=== PATIENT | female | born 1940 | race Caucasian/White ===

== ENCOUNTER 2016-09-11 11:14 | Inpatient (IN) | payer MEDICARE, OTHER ==
--- NOTE | ~2016-09-11 | BMI ---
[facility] Nutrition Therapy DATE: 09/13/16 Patient: ANTHONY HOLLIS Physician: BIANCA Address: [address] Room/Bed: [address] [place] [address], Zip: [place] [address] Admit Date: 09/11/16 Date of : 42 Height: 5 2 Weight: 222 101 HIGH BMI NOTE: ANTHROPOMETRICS: HT: 62" WT: 102 KG BMI: 41.1 INTERVENTION: 1. RENAL/ LOW K+ DIET RECOMMENDATIONS: 1. ADD HEART HEALTHY DIET RESTRICTION IN ORDER TO PROMOTE GRADUAL WEIGHT LOSS. Respectfully, DENISSE ROE RD, LD [employer] and Nutrition[employer] Services [facility] cc: client file
--- NOTE | ~2016-09-11 | CR156 ---
[facility] A Service of [facility] & [facility] RADIOLOGY TEXT RESULTS PATIENT: ANTHONY HOLLIS LOCATION: [facility] - : 42 UNIT #: [id number] AGE: [address]: Latonia Feliz MD SEX: F ORDER DR: [id number] [facility]. [place], [place] [address] [id number] I MR#: [id number] Acc #: [id number] NAME: ANTHONY HOLLIS. : 1940 SEX: F STUDY DATE/TIME: 09/14/2016 13:21 UNIT: [address] ROOM: [facility] STUDY DESCRIPTION: CR Humerus Min 2 View Lt Attending Physician: Latonia Feliz M.D. Ordering Physician: Latonia Feliz M.D. Primary Care Physician: Mulugeta Paredes Jr., M.D. MEDICAL IMAGING REPORT This report is preliminary unless electronic signature is present EXAM Left humerus, 2 views COMPARISON Left shoulder radiographs dated July 07, 2016. INDICATION 76-year-old female with left upper arm pain after falling today. FINDINGS Evaluation of the elbow is limited by nonstandard positioning. There is no evidence of acute fracture of the humerus. There is anatomic alignment at the shoulder. There is a chronic fracture which appears to be somewhat comminuted with an intraarticular extension and a transverse component at the radial neck extending through the radial head. It appears there is a pseudoarthrosis at the fracture line with nonunion. Given appearance on this current exam subluxation at the elbow cannot be excluded. IMPRESSION 1. No evidence of acute fracture of the humerus. 2. Alignment at the elbow is difficult to evaluate given nonstandard positioning. Subluxation and/or dislocation cannot be excluded given the current appearance. There is also a chronic comminuted fracture of the radial head extending into the neck with a transverse component and longitudinal component extending into the articular surface. There is pseudoarthrosis formation in this location. Consider orthopedic consultation. Dictated by... Ilan Duran M.D. THIS IS AN ELECTRONICALLY VERIFIED REPORT Ilan Duran M.D. at 09/17/2016 8:50 AM [facility] A Service of [facility] RADIOLOGY TEXT RESULTS PATIENT: ANTHONY HOLLIS LOCATION: [facility] 338-01 : 42 UNIT #: [id number] AGE: [address]: Latonia Feliz MD SEX: F ORDER DR: JERSEY/saúl TD: 09/15/2016 02:46 JOB #: [id number] MEDICAL IMAGING REPORT Page 1 of 1 COPY
--- NOTE | ~2016-09-11 | EKG ---
PATIENT: ANTHONY HOLLIS UNIT #: [id number] Ventricular Rate: 79 BPM Atrial Rate: 79 BPM P-R Interval: 168 ms QRS Duration: 132 ms Q-T Interval: 404 ms QTC Calculation(Bezet): 463 ms P [place]: 58 degrees Calculated R [place]: 7 degrees Calculated T [place]: 104 degrees Diagnosis Line: Normal sinus rhythm Diagnosis Line: Left bundle branch block with repolarization Diagnosis Line: abnormality Diagnosis Line: Abnormal ECG Diagnosis Line: When compared with ECG of 07-JUL-2016 03:45, Diagnosis Line: No significant change was found Diagnosis Line: Confirmed by KENAN LOO MD ([id number]) on 09/12/2016 Diagnosis Line: 9:20:03 AM INTERPRETING MD: CINDA URRUTIA
--- NOTE | ~2016-09-11 | DS ---
Unit #: [id number] #: [id number] Patient: ANTHONY HOLLIS [id number] [address] [address] [id number] I MR#: [id number] NAME: ANTHONY HOLLIS. ROOM: 338 Age: 76 Sex: F Admission Date: 09/11/2016 : 1940 Discharge Date: 09/16/2016 Attending Physician: Latonia Feliz M.D. Primary Care Physician: Mulugeta Paredes Jr., M.D. DISCHARGE SUMMARY DISCHARGE DIAGNOSES 1. Acute kidney injury with chronic kidney disease, stage 3. 2. Hyperkalemia secondary to acute kidney injury. 3. ESBL urinary tract infection. 4. Hypertension. 5. Diabetes mellitus type 2, uncontrolled. 6. Coronary artery disease. 7. Morbid obesity. 8. Chronic immobility. 9. Gastroesophageal reflux disease. 10. Generalized anxiety and depression. CONSULTANTS Dr. Pinto. PROCEDURES PERFORMED None. DIAGNOSTIC DATA LABORATORY: Sugar 279, sodium 140, potassium 4.8, creatinine 1.4, carbon dioxide 21. Urine cultures are growing ESBL e-coli infection. BMI 41. ALLERGIES Aspirin. DISCHARGE MEDICATIONS 1. Advair 250/50 Diskus inhalation b.i.d. 2. Sodium bicarbonate 650 mg p.o. b.i.d. 3. Effexor 75 mg daily. 4. Seroquel 50 mg at bedtime. 5. Norvasc 5 mg daily. 6. Propranolol 10 mg p.o. b.i.d. 7. Zocor 10 mg daily. 8. Humulin 70/30 22 units subcutaneous b.i.d. 9. NovoLog low-dose sliding scale. 10. Omeprazole 20 mg daily. 11. Vitamin B12 1000 mg p.o. daily. 12. Meropenem 500 mg IV q.8 h. Stop take 09/19/2016. HOSPITAL COURSE The patient is a 76-year-old admitted because of abnormal labs. 1. Acute kidney injury. The patient has chronic kidney disease stage 3. The patient's lisinopril has been discontinued. The patient received Unit #: [id number] #: [id number] Patient: ANTHONY HOLLIS IV fluids. Creatinine stable. She did receive bicarbonate also. 2. ESBL urinary tract infection. This is sensitive to most of antibiotics. The patient is on IV meropenem. She will complete a course of seven days. 3. Hyperkalemia secondary to acute kidney injury. The patient received insulin, IV fluids, calcium and Kayexalate. Currently potassium is stable. 4. Hypertension. Well controlled. 5. Diabetes mellitus type 2, uncontrolled. I increased her insulin. Continue with her 70/30 at home. Continue with constant carb diet. 6. Because of IV antibiotics and no help at home, the patient is going for rehab. The patient will have midline placed as she is going for rehab today. 7. Left shoulder pain. Orthopedics has been consulted. X-ray shows possible dislocation. Her pain is chronic, though, waiting on orthopedic input before discharge. Discharge time taken was 40 minutes. Dictated by... Tan King/kailash TD: 09/16/2016 15:09 JOB #: [id number] DISCHARGE SUMMARY Page 1 of 1 X Latonia Feliz MD X DISCHARGE SUMMARY
--- NOTE | ~2016-09-11 | CO ---
Unit #: [id number] #: [id number] Patient: ANTHONY HOLLIS [id number] [address] [address] [id number] I MR#: [id number] NAME: ANTHONY HOLLIS. ROOM: 338 Age: 76 Sex: F Admission Date: 09/11/2016 : 1940 Attending Physician: Latonia Feliz M.D. Primary Care Physician: Mulugeta Paredes Jr., M.D. Consultation Date: 09/11/2016 CONSULTATION REPORT REASON FOR CONSULT Acute renal failure and hyperkalemia. HISTORY OF PRESENT ILLNESS The patient is a 76-year-old, white female with history of CKD stage 3, baseline creatinine around 1.2 with history of diabetes, hypertension. Currently, the patient is seen and examined in the emergency room. She is confused and awake, but without complaints. PAST MEDICAL HISTORY Significant for diabetes, hypertension, CKD stage 3, hyperlipidemia. HOME MEDICATIONS Include Advair, Humulin, venlafaxine, vitamin, simvastatin, antacid, Aldactone, Norvasc, propranolol, omeprazole, Seroquel, Omnicef, Zestril, and Glucophage. SOCIAL HISTORY No tobacco. No alcohol. FAMILY HISTORY Noncontributory. REVIEW OF SYSTEMS 12-point review of systems cannot be completed secondary to the patient's confusion although she was without complaint. PHYSICAL EXAMINATION VITAL SIGNS: Blood pressure is 122/84, heart rate 84, respirations 18, temperature is 97.6. GENERAL: She is a well-nourished white female. HEENT: Shows no JVD. No LAD. CARDIOVASCULAR: Regular rate and rhythm. No murmurs, rubs, gallops. LUNGS: Clear to auscultation bilaterally. ABDOMEN: Soft, nontender, nondistended. EXTREMITIES: No clubbing, cyanosis, edema. NEUROLOGIC: She is awake, but confused and grossly intact. DIAGNOSTIC STUDIES LABORATORY RESULTS: Show sodium 138, potassium 5.6, chloride 107, bicarb 23, BUN 39, creatinine 1.5, calcium 8.6. White count 9.7, hemoglobin 11.2, platelets are 228. UA positive for wbc's and nitrites. ASSESSMENT Unit #: [id number] #: [id number] Patient: ANTHONY HOLLIS 1. Acute on chronic kidney disease. Creatinine is elevated to 1.5, which is slightly above her baseline. She does appear volume depleted on exam as well as with urinary tract infection. Agree with current antibiotics and IV fluids. I agree with holding lisinopril. We will continue to monitor. 2. Hyperkalemia most likely secondary to lisinopril and Aldactone. Agree with discontinuing these. She is status post Kayexalate as well as calcium gluconate. We will repeat potassium level tonight as well as in a.m. 3. Urinary tract infection, awaiting culture. Agree with antibiotics. 4. Hypertension. Blood pressure is currently at goal. I would like to thank Dr. Barahona for consulting us on this patient. We will continue to monitor closely. Dictated by... Tan Aleman/maximilian TD: 09/13/2016 01:36 JOB #: [id number] CONSULTATION REPORT Page 1 of 1 X Rosio Pinto MD X CONSULTATION REPORT
--- NOTE | ~2016-09-11 | CR229 ---
[facility] A Service of [facility] & [facility] RADIOLOGY TEXT RESULTS PATIENT: ANTHONY HOLLIS LOCATION: [facility] - : 42 UNIT #: [id number] AGE: [address]: Latonia Feliz MD SEX: F ORDER DR: [id number] [facility]. [place], [place] [address] [id number] I MR#: [id number] Acc #: [id number] NAME: ANTHONY HOLLIS. : 1940 SEX: F STUDY DATE/TIME: 09/14/2016 13:20 UNIT: [address] ROOM: [facility] STUDY DESCRIPTION: CR Shoulder Min 2 View Lt Attending Physician: Latonia Feliz M.D. Ordering Physician: Latonia Feliz M.D. Primary Care Physician: Mulugeta Paredes Jr., M.D. MEDICAL IMAGING REPORT This report is preliminary unless electronic signature is present EXAM Left shoulder, 3 views COMPARISON July 07, 2016. INDICATION 76-year-old female with left shoulder pain after falling today. FINDINGS There is stable joint space narrowing and moderate osteophyte formation at the acromioclavicular joint. Please note that the scapula is not well evaluated on the scapular Y view due to soft tissue attenuation. No acute fracture is definitively seen on the current exam. The left shoulder is anatomically aligned. IMPRESSION 1. Limited evaluation of the scapular body due to soft tissue attenuation and underpenetration. Correlation for point tenderness in this location is recommended. 2. Anatomic alignment of the left shoulder. No evidence of acute fracture on the current exam. 3. Moderate osteoarthritis of the acromioclavicular joint. Dictated by... Ilan Duran M.D. THIS IS AN ELECTRONICALLY VERIFIED REPORT Ilan Duran M.D. at 09/17/2016 8:47 AM JERSEY/saúl TD: 09/15/2016 02:25 [facility] A Service of [facility] RADIOLOGY TEXT RESULTS PATIENT: ANTHONY HOLLIS LOCATION: [facility] 338-01 : 42 UNIT #: [id number] AGE: [address]: Latonia Feliz MD SEX: F ORDER DR: JOB #: [id number] MEDICAL IMAGING REPORT Page 1 of 1 COPY
--- NOTE | ~2016-09-11 | HP ---
Unit #: [id number] #: [id number] Patient: ANTHONY HOLLIS [id number] [address] [address] [id number] E MR#: [id number] NAME: ANTHONY HOLLIS. ROOM: Age: 76 Sex: F Admission Date: 09/11/2016 : 1940 Attending Physician: Denis Gonzalez M.D. Primary Care Physician: Mulugeta Paredes Jr., M.D. HISTORY AND PHYSICAL CHIEF COMPLAINT Abnormal labs. HISTORY OF PRESENT ILLNESS The patient is 76-year-old female with history of multiple medical problems who presented to the emergency room with abnormal labs. The patient stated the patient had blood work this morning and was sent to the emergency room for high potassium of 5.6. The patient denies any specific complaints, denies any chest pain, palpitations, nausea, vomiting. The patient had an EKG that shows normal sinus rhythm with left bundle branch block. The patient received the fluids with calcium gluconate and Kayexalate in the emergency room and is being admitted for the above reasons. The patient is on Aldactone for the blood pressure and has been managed by the renal doctor. PAST MEDICAL HISTORY 1. History of chronic kidney disease. Baseline creatinine is 1.5. 2. History of hypertension. 3. Diabetes with poor compliance. 4. Coronary artery disease. 5. Hyperlipidemia. 6. Morbid obesity. 7. Chronic immobility syndrome. 8. GERD. 9. Generalized anxiety depression. PAST SURGICAL HISTORY History of hysterectomy. HOME MEDICATIONS 1. Advair. 2. Humulin. 3. Venlafaxine. 4. Vitamins. 5. Simvastatin. 6. Antacid. 7. Aldactone. 8. Norvasc. 9. Propranolol. 10. Omeprazole. 11. Seroquel. 12. Omnicef. 13. Zestril. 14. Glucophage. Unit #: [id number] #: [id number] Patient: ANTHONY HOLLIS ALLERGIES Aspirin. SOCIAL HISTORY Lives at home with her daughter. Denies alcohol, tobacco or any illicit drug abuse. FAMILY HISTORY Positive for hypertension and diabetes. REVIEW OF SYSTEMS A 14-point review of systems performed and only pertinent positive findings as described above, remaining are negative. PHYSICAL EXAMINATION VITAL SIGNS: Temperature 97.6, pulse 86, respiratory rate 17, blood pressure 128/54, saturating 93% at room air. GENERAL: Patient is lying on the bed not in acute distress. HEENT: Atraumatic, normocephalic. Pupils equal, round, and reactive to light and accommodation. Extraocular movements are intact. NECK: Supple. No JVD. LUNGS: Clear to auscultation bilaterally. No rhonchi, no wheezing. HEART: Regular rate and rhythm. ABDOMEN: Soft, positive bowel sounds. EXTREMITIES: No cyanosis, no clubbing. No pedal edema. NEUROLOGIC: Alert, awake, oriented. No gross focal motor deficit. DIAGNOSTIC STUDIES LABORATORY: Glucose 186, BUN 39, creatinine 1.5, sodium 138, potassium 5.6, chloride 107, bicarb 23, calcium 8.6, total protein 7.3, total bilirubin 0.3, AST 22, ALT 17, alkaline phosphatase 85. WBC 9.7, hemoglobin 11.2, hematocrit 34.4, platelets 228, neutrophils 75.3. UA shows 2+ leukocyte esterase, nitrite positive, 10-25 wbc's, 4+ urine bacteria. CARDIOVASCULAR: EKG shows normal sinus rhythm. Left bundle branch block, chronic. ASSESSMENT AND PLAN 1. Hyperkalemia. 2. Acute kidney injury/chronic kidney disease. 3. Urinary tract infection. 4. Hypertension. PLAN 1. Admit patient as inpatient with telemetry. 2. Patient will be started on IV antibiotics as not received in the ER with Rocephin. 3. Patient has received cocktail for potassium lowering with fluids, calcium gluconate and Kayexalate. 4. Hold Aldactone. 5. Repeat potassium level again at 8 p.m. 6. Continue with renal low-potassium diet. 7. Repeat CBC and BMP again in the morning. 8. Further recommendations will follow. Unit #: [id number] #: [id number] Patient: ANTHONY HOLLIS Dictated by Tan Cai TD: 09/11/2016 15:25 JOB #: [id number] HISTORY AND PHYSICAL Page 1 of 1 X X HISTORY AND PHYSICAL
[~2016-09-11 11:14] MED LIST: ACTOS15 MG PO; ADVAIR 250-501 EAC1 INH; ALBUTEROL17 GM INH; ALDACTONE25 MG PO; ANTACID650 MG PO; B-121000 MC1 PO; BP; DICLOFENAC PO; DIFLUCAN100 MG PO; FENOFIBRATE160 MG PO; GEODON20 MG PO; GLUCOPHAGE XR500 MG PO; GLUCOTROL PO; HUMALOG100 U/ML SUBQ; HUMULIN 70100 UNITS/ SUBQ; HUMULIN N VIAL; HYCODAN60 ML 5MG/ PO; INSULIN; KCL PO; KEFLEX500 M2 PO; LASIX PO; LEVEMIR SUBQ; LISINOPRIL PO; LISINOPRIL10 MG PO; LOTRISONE CREAM45 GM TOP; MACROBID100 MG PO; MEDROL4 MG/DOSE- PO; METFORMIN; METFORMIN HCL500 M1 PO; METFORMIN HCL500 M2 PO; NORVASC PO; NOVOLIN 70/30 V10 M1 SQ; OMEPRAZOLE20 M2 PO; OMNICEF300 MG PO; OXAZEPAM10 MG DOB; PHENERGAN PR; PHENERGAN25 MG PO; PROPRANOLOL HCL10 MG PO; QUETIAPINE FUMA50 MG PO; SIMVASTATIN10 MG PO; SODIUM BICARBO650 MG PO; ULTRAM PO; VENLAFAXINE HCL75 M2 PO; VICODIN 5/1 TAB 5/50 PO; VITAMIN B-121000 MCG PO; ZESTRIL10 M1 PO; ZITHROMAX PO; ZOCOR10 MG PO
[2016-09-11 11:15] LABS: BASOPHIL% 0.5 % (0-2.5); EOSINOPHIL# 0.1 X10e3 (0-0.7); EOSINOPHIL% 1.3 % (0.0-7.0); HEMATOCRIT 34.4 % (35.0-45.0); HEMOGLOBIN 11.2 gm/dL (12.0-16.0); LYMPHOCYTE# 1.7 X10e3 (1.0-3.5); LYMPHOCYTE% 17.9 % (17.0-45.0); MEAN CELL VOLUME 99.9 FL (83-96); MEAN CORPUSCULAR HEMOGLOBIN 32.6 PG (28-34); MEAN CORPUSCULAR HGB CONC 32.6 g/dL (30-36); MEAN PLATELET VOLUME 8.1 FL (6.5-11.5); MONOCYTE# 0.5 X10e3 (0-1.0); NEUTROPHIL# 7.3 X10e3 (1.5-7.1); NEUTROPHIL% 75.3 % (40-75); PLATELET COUNT 228 X10e3 (140-420); RED BLOOD COUNT 3.44 X10e (3.90-5.30); RED CELL DISTRIBUTION WIDTH 13.5 % (11.0-15.5); WHITE BLOOD COUNT 9.7 X10e3 (4.0-10.5)
[2016-09-11 11:20] LABS: DIFF IND NO
[2016-09-11 11:58] LABS: ALBUMIN SERUM 3.7 g/dL (3.5-5.0); BILIRUBIN, DIRECT 0.1 mg/dL (0.0-0.2); BILIRUBIN,INDIRECT 0.2 mg/dL (0.0-0.9); BILIRUBIN,TOTAL 0.3 mg/dL (0.2-2.0); CALCIUM SERUM 8.6 mg/dL (8.4-10.2); CREATININE SERUM 1.5 mg/dL (0.6-1.4); GLOM FILT RATE Estimated 36.1 mL/min (>60); PROTEIN TOTAL SERUM 7.3 g/dL (6.0-8.3)
[2016-09-11 12:00] LABS: POTASSIUM 5.6 mmol/L (3.5-5.1)
[2016-09-11 13:17] LABS: URINE SOURCE CLEAN CATCH
[2016-09-11 13:24] LABS: URINE APPEARANCE CLEAR; URINE BILIRUBIN NEG (NEG); URINE BLOOD NEG (NEG); URINE COLOR YELLOW; URINE GLUCOSE NEG (NEG); URINE KETONE NEG (NEG); URINE LEUKOCYTE ESTERASE 2+ (NEG); URINE NITRATE POS (NEG); URINE PROTEIN NEG (NEG); URINE SPECIFIC GRAVITY 1.015 (1.003-1.035); URINE UROBILINOGEN 0.2 MG/DL (NEG)
[2016-09-11 13:46] LABS: CULTURE INDICATED? YES; URBCS1 AUWI 0-2 /[HPF] (0-2); URINE BACTERIA AUWI 4+ (NEGATIVE); URINE SQUAMOUS EPITHELIAL CELL OCC /[HPF]
[2016-09-12 08:04] LABS: HEMATOCRIT 32.7 % (35.0-45.0); HEMOGLOBIN 10.9 gm/dL (12.0-16.0); MEAN CELL VOLUME 99.2 FL (83-96); MEAN CORPUSCULAR HEMOGLOBIN 33.1 PG (28-34); MEAN CORPUSCULAR HGB CONC 33.3 g/dL (30-36); RED BLOOD COUNT 3.3 X10e (3.90-5.30); RED CELL DISTRIBUTION WIDTH 13.2 % (11.0-15.5); WHITE BLOOD COUNT 8.6 X10e3 (4.0-10.5)
[2016-09-12 08:28] LABS: BUN/CREATININE RATIO 25.71; CALCIUM SERUM 8.9 mg/dL (8.4-10.2); CREATININE SERUM 1.4 mg/dL (0.6-1.4); GLOM FILT RATE Estimated 39.1 mL/min (>60); POTASSIUM 5.1 mmol/L (3.5-5.1)
[2016-09-13 08:47] LABS: BUN/CREATININE RATIO 27.14; CALCIUM SERUM 8.7 mg/dL (8.4-10.2); CREATININE SERUM 1.4 mg/dL (0.6-1.4); GLOM FILT RATE Estimated 36.9 mL/min (>60)
[2016-09-14 06:10] LABS: HEMATOCRIT 36.2 % (35.0-45.0); HEMOGLOBIN 11.9 gm/dL (12.0-16.0); MEAN CELL VOLUME 99.5 FL (83-96); MEAN CORPUSCULAR HEMOGLOBIN 32.7 PG (28-34); MEAN CORPUSCULAR HGB CONC 32.9 g/dL (30-36); MEAN PLATELET VOLUME 8.3 FL (6.5-11.5); RED BLOOD COUNT 3.64 X10e (3.90-5.30); RED CELL DISTRIBUTION WIDTH 13.4 % (11.0-15.5); WHITE BLOOD COUNT 10.2 X10e3 (4.0-10.5)
[2016-09-14 06:43] LABS: BUN/CREATININE RATIO 32.3; CALCIUM SERUM 9.3 mg/dL (8.4-10.2); CREATININE SERUM 1.3 mg/dL (0.6-1.4); GLOM FILT RATE Estimated 40.4 mL/min (>60)
[2016-09-14 06:49] LABS: POTASSIUM 5.5 mmol/L (3.5-5.1)
[2016-09-14 16:26] LABS: BUN/CREATININE RATIO 26.25; CALCIUM SERUM 9.4 mg/dL (8.4-10.2); CREATININE SERUM 1.6 mg/dL (0.6-1.4); GLOM FILT RATE Estimated 31.4 mL/min (>60); POTASSIUM 5.2 mmol/L (3.5-5.1)
[2016-09-15 12:15] LABS: HEMATOCRIT 36.6 % (35.0-45.0); HEMOGLOBIN 11.8 gm/dL (12.0-16.0); MEAN CELL VOLUME 100.9 FL (83-96); MEAN CORPUSCULAR HEMOGLOBIN 32.5 PG (28-34); MEAN CORPUSCULAR HGB CONC 32.3 g/dL (30-36); MEAN PLATELET VOLUME 8.2 FL (6.5-11.5); RED BLOOD COUNT 3.63 X10e (3.90-5.30); RED CELL DISTRIBUTION WIDTH 13.5 % (11.0-15.5); WHITE BLOOD COUNT 9.4 X10e3 (4.0-10.5)
[2016-09-15 12:44] LABS: ALBUMIN SERUM 3.8 g/dL (3.5-5.0); BILIRUBIN,TOTAL 0.7 mg/dL (0.2-2.0); BUN/CREATININE RATIO 27.22; CALCIUM SERUM 8.8 mg/dL (8.4-10.2); CREATININE SERUM 1.8 mg/dL (0.6-1.4); GLOM FILT RATE Estimated 27.3 mL/min (>60); POTASSIUM 4.7 mmol/L (3.5-5.1); PROTEIN TOTAL SERUM 7.6 g/dL (6.0-8.3)
[2016-09-15 19:01] LABS: URINE SOURCE CLEAN CATCH
[2016-09-15 19:23] LABS: URINE COLOR YELLOW
[2016-09-15 19:24] LABS: URINE APPEARANCE SL CLOUDY; URINE BILIRUBIN NEG (NEG); URINE BLOOD 2+ (NEG); URINE GLUCOSE 50 MG/DL (NEG); URINE KETONE NEG (NEG); URINE LEUKOCYTE ESTERASE 1+ (NEG); URINE NITRATE NEG (NEG); URINE PROTEIN NEG (NEG); URINE SPECIFIC GRAVITY 1.015 (1.003-1.035); URINE UROBILINOGEN NORM (NEG)
[2016-09-15 19:28] LABS: CREATININE,RANDOM URINE 74 mg/dL; POTASSIUM,URINE RANDOM 26 mmol/L; SODIUM URINE RANDOM 86 mmol/L
[2016-09-15 19:33] LABS: URBCS1 AUWI 0-2 /[HPF] (0-2); URINE BACTERIA AUWI 3+ (NEGATIVE); URINE SQUAMOUS EPITHELIAL CELL OCCAS /[HPF]; UWBCS1 AUWI 0-2 (0-5)
[2016-09-15 19:34] LABS: U HYALINE CASTS AUWI 0-2 /[LPF]; URINE AMORPHOUS SEDIMENT AMORP URATES; URINE YEAST PRESENT
[2016-09-16 07:25] LABS: BASOPHIL# 0.1 X10e3 (0-0.3); BASOPHIL% 0.7 % (0-2.5); EOSINOPHIL# 0.3 X10e3 (0-0.7); EOSINOPHIL% 3.1 % (0.0-7.0); HEMATOCRIT 32.5 % (35.0-45.0); HEMOGLOBIN 10.9 gm/dL (12.0-16.0); LYMPHOCYTE# 2.7 X10e3 (1.0-3.5); MEAN CELL VOLUME 98.5 FL (83-96); MEAN CORPUSCULAR HEMOGLOBIN 33.2 PG (28-34); MEAN CORPUSCULAR HGB CONC 33.7 g/dL (30-36); MEAN PLATELET VOLUME 8.4 FL (6.5-11.5); MONOCYTE# 0.8 X10e3 (0-1.0); MONOCYTE% 7.7 % (3.0-12.0); NEUTROPHIL# 6.2 X10e3 (1.5-7.1); NEUTROPHIL% 61.5 % (40-75); PLATELET COUNT 193 X10e3 (140-420); RED CELL DISTRIBUTION WIDTH 13.3 % (11.0-15.5)
[2016-09-16 07:26] LABS: DIFF IND NO
[2016-09-16 08:08] LABS: BUN/CREATININE RATIO 35.71; CALCIUM SERUM 8.5 mg/dL (8.4-10.2); CREATININE SERUM 1.4 mg/dL (0.6-1.4); GLOM FILT RATE Estimated 36.9 mL/min (>60); POTASSIUM 4.8 mmol/L (3.5-5.1)
== END 2016-09-16 23:17 | DRG 683 ==
LOC: CED 11:14 → CEDOF 14:45 → C3A PCU 19:54
PROVIDERS: Emergency Medicine; Internal Medicine; Internal Medicine Nephrology
PROC: 05HF33Z Insertion of Infusion Device into Left Cephalic Vein, Percutaneous Approach (ICD-10-PCS; principal; 2016-09-16)
PROC: B54NZZA Ultrasonography of Left Upper Extremity Veins, Guidance (ICD-10-PCS; 2016-09-16)
DX: N17.9 Acute kidney failure, unspecified (principal); Z68.41 Body mass index [BMI] 40.0-44.9, adult; E11.65 Type 2 diabetes mellitus with hyperglycemia; N39.0 Urinary tract infection, site not specified; I12.9 Hypertensive chronic kidney disease with stage 1 through stage 4 chronic kidney disease, or unspecified chronic kidney disease; N18.3 Chronic kidney disease, stage 3 (moderate); E87.5 Hyperkalemia; E66.01 Morbid (severe) obesity due to excess calories; B96.20 Unspecified Escherichia coli [E. coli] as the cause of diseases classified elsewhere; Z16.12 Extended spectrum beta lactamase (ESBL) resistance; Z79.4 Long term (current) use of insulin; I25.10 Atherosclerotic heart disease of native coronary artery without angina pectoris; M62.3 Immobility syndrome (paraplegic); K21.9 Gastro-esophageal reflux disease without esophagitis; F41.1 Generalized anxiety disorder; F32.9 Major depressive disorder, single episode, unspecified; Z88.6 Allergy status to analgesic agent; S43.005A Unspecified dislocation of left shoulder joint, initial encounter; X58.XXXA Exposure to other specified factors, initial encounter; I44.7 Left bundle-branch block, unspecified; E78.5 Hyperlipidemia, unspecified; R32 Unspecified urinary incontinence
CPT/HCPCS: 36415; 73030; 73060; 80048; 80053; 80076; 81003; 82436; 82570; 82947; 84132; 84133; 84300; 85025; 85027; 87086; 87088; 87186; 93005; 94760; 97116; 97163; 97166; 97530; 99285; G8978-GP; G8979-GP; G8980-GP; G8987-GO; G8988-GO; J0610; J0696; J1650; J1815; J2185

== ENCOUNTER 2016-10-01 01:55 | Inpatient (IN) | payer MEDICARE, OTHER ==
--- NOTE | ~2016-10-01 | DS ---
Unit #: [id number] #: [id number] Patient: ANTHONY HOLLIS [id number] [address] [address] [id number] I MR#: [id number] NAME: ANTHONY HOLLIS ROOM: 224 Age: 76 Sex: F Admission Date: 10/01/2016 : 1940 Discharge Date: Attending Physician: Latonia Feliz M.D. Primary Care Physician: Mulugeta Paredes Jr., M.D. DISCHARGE SUMMARY DISCHARGE DIAGNOSES 1. Change in mental status secondary to toxic metabolic encephalopathy. 2. ESBL and Escherichia urinary tract infection. 3. Mild elevated troponin, nonspecific. Continue with medical management as per Cardiology. 4. Acute kidney injury with chronic kidney disease stage 2. 5. Dementia. 6. Diabetes mellitus type 2, controlled. 7. Chronic obstructive pulmonary disease. 8. Morbid obesity. 9. Hypertension, uncontrolled. 10. Coronary artery disease. 11. History of anxiety. 12. History of depression. 13. Chronic immobility needing rehab. CONSULTANTS Dr. Marcus. PROCEDURES None. DIAGNOSTIC STUDIES LABORATORY: Glucose 228, sodium 138, potassium 5.0, creatinine 1.0, AST 22, ALT 20, alkaline phosphatase 108, albumin 3.3. WBC 9.4, hemoglobin 11.3, platelets 265. Urine culture growing ESBL E coli. Blood cultures are negative. LDL 72. Troponin elevated maximum 0.14. IMAGING: Chest x-ray 2 views shows bilateral atelectasis, no acute infiltrates. ALLERGIES Aspirin. DISCHARGE MEDICATIONS 1. Advair Diskus inhalation b.i.d. 2. Sodium bicarbonate 650 p.o. b.i.d. 3. Tylenol 650 q.6 h. p.r.n. pain. 4. Trazodone 25 mg q.6 h. p.r.n. anxiety. 5. Effexor XR 75 mg p.o. daily. 6. Glucagon IM p.r.n. 7. Metformin 500 p.o. before breakfast. 8. Seroquel 25 p.o. daily. 9. Norvasc 5 mg p.o. daily. Unit #: [id number] #: [id number] Patient: ANTHONY HOLLIS 10. Propranolol 10 mg p.o. b.i.d. 11. Bisacodyl 5 mg p.o. daily p.r.n. constipation. 12. Milk of magnesia 30 mL p.o. p.r.n. constipation. 13. MiraLAX 17 grams p.o. daily p.r.n. constipation. 14. Zocor 10 mg daily. 15. Novolin 70/30, 22 units subcu b.i.d. 8 a.m. and 10 p.m. 16. Florastor 250 mg p.o. b.i.d. 17. Plavix 75 daily. 18. Meropenem 500 mg IV q.6 h. for 4 more days. 19. Vitamin B12 1000 mcg p.o. daily. HOSPITAL COURSE This is a 76-year-old admitted because of change in mental status. Toxic metabolic encephalopathy from urinary tract infection, currently stable back to baseline. ESBL urinary tract infection with E coli. The patient started on IV meropenem as she is resistant to multiple antibodies. She will continue the meropenem for 4 more days. She has a midline. Patient needs midline to be removed after she completes her antibiotic course at rehab. Hypertension, uncontrolled occasionally. Continue with home medications and monitor closely at rehab. Acute kidney injury most likely prerenal from poor p.o. intake from confusion. Patient received IV fluids, creatinine stable. Higher range of potassium, no hyperkalemia but her potassium is 5.0, high risk of hyperkalemia because of recent acute kidney injury. I ordered low potassium diet at rehab. The patient has close monitoring there. Diabetes mellitus type 2, well controlled. Continue with current insulin. Elevated troponins, mild. Patient is seen by Cardiology and they recommend medical management only. Patient was started on Plavix. Acute hypoxic respiratory failure present on admission. Patient is on 3 liters. Chronic kidney disease, stage 2, stable. No pneumonia. Morbid obesity secondary to calories. DISPOSITION Patient will be discharged to rehab. DISCHARGE INSTRUCTIONS 1. Patient to have close monitoring of her potassium and creatinine. 2. BMP to be done in one week time at rehab and follow with MD at rehab. 3. Please note, midline to be removed after she completes her IV antibiotic course. CODE STATUS The patient is a DNR. Unit #: [id number] #: [id number] Patient: ANTHONY HOLLIS Discharge time taken is 31 minutes. Dictated by... Tan King TD: 10/04/2016 16:46 JOB #: [id number] DISCHARGE SUMMARY Page 1 of 1 X Latonia Feliz MD X DISCHARGE SUMMARY
--- NOTE | ~2016-10-01 | CR72 ---
[facility] A Service of [facility] & [facility] RADIOLOGY TEXT RESULTS PATIENT: ANTHONY HOLLIS LOCATION: [facility] [address]-28 : 42 UNIT #: [id number] AGE: [address]: Darlin Montoya MD SEX: F ORDER DR: [id number] [facility] [address] [place], [place] [address] [id number] I MR#: [id number] Acc #: [id number] NAME: ANTHONY HOLLIS. : 1940 SEX: F STUDY DATE/TIME: 10/01/2016 01:58 UNIT: [facility] ROOM: 33788 STUDY DESCRIPTION: CR Chest Single View Portable Attending Physician: Darlin Montoya M.D. Ordering Physician: Gil Rosas M.D. Primary Care Physician: Mulugeta Paredes Jr., M.D. MEDICAL IMAGING REPORT This report is preliminary unless electronic signature is present EXAM Portable chest, 10/01/2016 at 01:58 INDICATION Hyperglycemia. Confusion and shortness of air tonight. FINDINGS AP portable chest compared with 06/28/2016. Cardiomegaly is stable. Patient is rotated. There has been interval development of diffuse pulmonary edema. No pneumothorax. IMPRESSION Rotated exam. Stable marked cardiomegaly. New diffuse pulmonary edema is present. Dictated by... Castro Zarco Jr., M.D. THIS IS AN ELECTRONICALLY VERIFIED REPORT Castro Zarco Jr., M.D. at 10/01/2016 6:08 AM TOÑA/roberta TD: 10/01/2016 05:12 JOB #: [id number] MEDICAL IMAGING REPORT Page 1 of 1 COPY
--- NOTE | ~2016-10-01 | EKG ---
PATIENT: ANTHONY HOLLIS UNIT #: [id number] Ventricular Rate: 74 BPM Atrial Rate: 74 BPM P-R Interval: 176 ms QRS Duration: 132 ms Q-T Interval: 436 ms QTC Calculation(Bezet): 483 ms P [place]: 52 degrees Calculated R [place]: 31 degrees Calculated T [place]: 57 degrees Diagnosis Line: Normal sinus rhythm Diagnosis Line: Non-specific intra-ventricular conduction block Diagnosis Line: Cannot rule out Septal infarct (cited on or before Diagnosis Line: 01-OCT-2016) Diagnosis Line: Possible Lateral infarct (cited on or before Diagnosis Line: 01-OCT-2016) Diagnosis Line: Abnormal ECG Diagnosis Line: When compared with ECG of 01-OCT-2016 02:06, Diagnosis Line: (unconfirmed) Diagnosis Line: QRS axis Shifted right Diagnosis Line: Nonspecific T wave abnormality no longer evident Diagnosis Line: in Inferior leads Diagnosis Line: Confirmed by DEION POSADAS MD ([id number]) on 10/01/2016 Diagnosis Line: 10:27:39 PM INTERPRETING MD: KATHARINA URRUTIA
--- NOTE | ~2016-10-01 | CT71 ---
[facility] A Service of [facility] & [facility] RADIOLOGY TEXT RESULTS PATIENT: ANTHONY HOLLIS LOCATION: A 323-01 : 42 UNIT #: [id number] AGE: [address]: Latonia Feliz MD SEX: F ORDER DR: [id number] [facility] [address] [place], [place] [address] [id number] I MR#: [id number] Acc #: [id number] NAME: ANTHONY HOLLIS. : 1940 SEX: F STUDY DATE/TIME: 10/01/2016 02:58 UNIT: [facility] ROOM: [address]3636 STUDY DESCRIPTION: CT Head Wo Contrast Attending Physician: Darlin Montoya M.D. Ordering Physician: Gil Rosas M.D. Primary Care Physician: Mulugeta Paredes Jr., M.D. MEDICAL IMAGING REPORT This report is preliminary unless electronic signature is present EXAM Head CT 10/01 at 02:58 INDICATIONS Confusion and restlessness for 1 day. Hyperglycemia with blood glucose over 500. FINDINGS Axial images were obtained from base of the vertex without contrast. Comparison is made with 07/07/2016. This CT examination was performed with one or more of the following radiation dose reduction techniques: automatic exposure control, adjustment of mA and/or kV according to patient size, and iterative reconstruction. Again seen is generalized atrophy. Ventricular size and configuration within normal limits. Advanced chronic small vessel ischemic changes are present in the white matter. Dystrophic calcifications are noted in both basal ganglia, unchanged. No acute infarct or hemorrhage. No masses. Atherosclerotic calcifications are present in the carotid siphons. There are no skull fractures. IMPRESSION No acute intracranial abnormality. No change from prior. Dictated by... Castro Zarco Jr., M.D. THIS IS AN ELECTRONICALLY VERIFIED REPORT Castro Zarco Jr., M.D. at 10/01/2016 10:39 PM TOÑA/gregory TD: 10/01/2016 06:34 JOB #: 1 [facility] A Service of [facility] & [facility] RADIOLOGY TEXT RESULTS PATIENT: ANTHONY HOLLIS LOCATION: [facility] 323-01 : 42 UNIT #: [id number] AGE: [address]: Latonia Feliz MD SEX: F ORDER DR: MEDICAL IMAGING REPORT Page 1 of 1 COPY
--- NOTE | ~2016-10-01 | CT57 ---
[facility] A Service of [facility] RADIOLOGY TEXT RESULTS PATIENT: ANTHONY HOLLIS LOCATION: [facility] 323- : 42 UNIT #: [id number] AGE: [address]: Latonia Feliz MD SEX: F ORDER DR: [id number] [place] [id number] [facility]. [place], [place] [address] [id number] I MR#: [id number] Acc #: [id number] NAME: ANTHONY HOLLIS. : 1940 SEX: F STUDY DATE/TIME: 10/01/2016 8:28 UNIT: [address] ROOM: [facility] STUDY DESCRIPTION: CT Chest Wo Cont Attending Physician: Latonia Feliz M.D. Ordering Physician: Gil Rosas M.D. Primary Care Physician: Mulugeta Paredes Jr., M.D. MEDICAL IMAGING REPORT This report is preliminary unless electronic signature is present EXAM CT chest without contrast INDICATION Hyperglycemia. Confusion. Shortness of air. Abnormal chest radiograph. TECHNIQUE CT of the chest without contrast. Coronal and sagittal reconstructions were obtained. This CT examination was performed with one or more of the following radiation dose reduction techniques: automatic exposure control, adjustment of mA and/or kV according to patient size, and iterative reconstruction. COMPARISON Concurrent CT abdomen 10/01/2016. Chest radiograph dated 10/01/2016. FINDINGS Unfortunately, there is significant motion artifact on the exam. There is areas of increased interstitial markings in both lungs. This appears to be chronic interstitial change. There is a similar appearance on prior radiographs. This appearance is unchanged from 2013 CT scan. No enlarged mediastinal or hilar lymph nodes. Main pulmonary artery is dilated indicating a component of pulmonary arterial hypertension. No pericardial or pleural effusion. The heart is enlarged. Please refer to a separately dictated report for details on the abdomen. No acute osseous abnormalities. IMPRESSION 1. Chronic interstitial opacities in both lungs are unchanged from the 2013 exam. [facility] A Service [facility] RADIOLOGY TEXT RESULTS PATIENT: ANTHONY HOLLIS LOCATION: [facility] 323-01 : 42 UNIT #: [id number] AGE: [address]: Latonia Feliz MD SEX: F ORDER DR: 2. No new pulmonary findings. 3. Cardiomegaly and dilated pulmonary artery. Dictated by... Gilmar Montague M.D. THIS IS AN ELECTRONICALLY VERIFIED REPORT Gilmar Montague M.D. at 10/01/2016 12:37 PM EDDY/harley TD: 10/01/2016 11:16 JOB #: [id number] MEDICAL IMAGING REPORT Page 1 of 1 COPY
--- NOTE | ~2016-10-01 | CT7 ---
[facility] A Service of [facility] RADIOLOGY TEXT RESULTS PATIENT: ANTHONY HOLLIS LOCATION: [facility] : 42 UNIT #: [id number] AGE: [address]: Latonia Feliz MD SEX: F ORDER DR: [id number] [facility] [address] [facility]. [place], [place] [address] [id number] I MR#: [id number] #: [id number] NAME: ANTHONY HOLLIS. : 1940 SEX: F STUDY DATE/TIME: 10/01/2016 8:28 [facility] ROOM: 323 STUDY DESCRIPTION: CT Abdomen Wo Cont Attending Physician: Latonia Feliz M.D. Ordering Physician: Gil Rosas M.D. Primary Care Physician: Mulugeta Paredes Jr., M.D. MEDICAL IMAGING REPORT This report is preliminary unless electronic signature is present EXAM CT abdomen. HISTORY Hyperglycemia. Urinary tract infection. Diffuse abdominal pain and right upper quadrant abdominal pain. TECHNIQUE CT of the abdomen without contrast. Coronal and sagittal reconstructions were obtained. This CT exam was performed with one or more of the following radiation dose reduction techniques: automatic exposure control, adjustment of mA and/or kV according to patient size, and iterative reconstruction. COMPARISON Concurrent CT chest and CT abdomen dated 01/17/2012. FINDINGS There is a calcified gallstone layering independently in the gallbladder. No gallbladder distension or pericholecystic inflammation. Intrahepatic and extrahepatic bile ducts are normal in caliber. The pancreas is atrophic. No urinary calculi. No hydronephrosis. There is mild renal atrophy. The bowel is not dilated. The abdominal aorta is normal in caliber. No acute osseous abnormalities. There is an IVC filter in the infrarenal IVC. IMPRESSION 1. No acute findings in the abdomen or pelvis. [facility] A Service of [facility] RADIOLOGY TEXT RESULTS PATIENT: ANTHONY HOLLIS LOCATION: [facility] - : 42 UNIT #: [id number] AGE: [address]: Latonia Feliz MD SEX: F ORDER DR: 2. Cholelithiasis. 3. Mild renal atrophy. No hydronephrosis. Dictated by... Gilmar Montague M.D. THIS IS AN ELECTRONICALLY VERIFIED REPORT Gilmar Montague M.D. at 10/01/2016 12:37 PM EDDY/gregory TD: 10/01/2016 11:14 JOB #: [id number] MEDICAL IMAGING REPORT Page 1 of 1 COPY
--- NOTE | ~2016-10-01 | HP ---
Unit #: [id number] #: [id number] Patient: ANTHONY HOLLIS [id number] [address] [place], [place] [address] [id number] Carol MR#: [id number] NAME: ANTHONY HOLLIS. ROOM: 18910 Age: 76 Sex: F Admission Date: 10/01/2016 : 1940 Attending Physician: Darlin Montoya M.D. Primary Care Physician: Mulugeta Paredes Jr., M.D. HISTORY AND PHYSICAL CHIEF COMPLAINT Altered mental status, abnormal chest x-ray, urinary tract infection. HISTORY This 76-year-old female with dementia, chronic kidney disease, essential hypertension, diabetes mellitus, was transferred from the care home for altered mental status. Patient was most recently admitted to this facility 09/11/2016 for ESBL urinary tract infection with acute and chronic kidney disease. I went to the care home afterwards. Recently at the care home was noted to be short of breath and more confused, along with restless. She was sent to this facility where her chest x-ray shows bilateral opacities. Urinalysis shows significant pyuria despite Rocephin. In the ER she was bolused with IV fluids, and given a dose of Zosyn pending further workup. She is fairly confused on exam. PAST MEDICAL HISTORY 1. Dementia. 2. Chronic kidney disease with a baseline creatinine of 1.5. 3. Essential hypertension. 4. AODM. 5. Normal cardiac catheterization 02/2007. 6. Hyperlipidemia. 7. Morbid obesity. 8. Chronic immobility syndrome. 9. GERD. 10. Anxiety and depression. 11. B12 deficiency. 12. COPD. 13. Hysterectomy. ALLERGIES Aspirin. LONG-TERM MEDICINES 1. Effexor 75 mg daily. 2. Seroquel 50 mg daily. 3. Norvasc 5 mg daily. 4. Zocor 10 mg daily. 5. Omeprazole 20 mg daily. 6. Vitamin B12, 1,000 mcg daily. 7. Rocephin 1 g daily. 8. Mucinex 600 mg b.i.d. Unit #: [id number] #: [id number] Patient: ANTHONY HOLLIS 9. Florastor 250 mg b.i.d. 10. Propranolol 10 mg b.i.d. 11. Advair 250/50 one puff b.i.d. 12. Sodium bicarb 1 tablet b.i.d. 13. Trazodone 25 mg q.6 hours p.r.n. anxiety. 14. [place] 5/325 q.6 hours as needed. 15. P.r.n. Tylenol, Dulcolax, enemas, glucagon, MOM, MiraLAX. 16. Low dose sliding scale NovoLog. 17. Humulin 70/30 22 units b.i.d. FAMILY HISTORY Unobtainable. SOCIAL HISTORY The patient lives at [facility] under the care of Dr. Ronaldo Stanton. Currently does not smoke tobacco or drink alcohol. REVIEW OF SYSTEMS Somewhat difficult to obtain as patient is confused. PHYSICAL EXAMINATION GENERAL: Confused 76-year-old morbidly obese female currently in no acute distress. VITAL SIGNS: She is laying flat with oxygen with O2 sats of about 99%. Temperature 98.1, pulse 75, respirations 17, blood pressure 152/128. HEENT: Eyes - PERRLA, extraocular muscles are intact. Pharynx is benign. NECK: Supple without adenopathy or thyromegaly. CHEST: Does reveals some rales. CARDIAC: Normal S1 and S2 without murmur. ABDOMEN: Bowel sounds are present. Patient is tender in the right upper quadrant without rebound or guarding. No definite hepatosplenomegaly or masses. EXTREMITIES: Mild edema. Pedal pulses are diminished. No ulcers on the feet. NEUROLOGIC: Patient is mildly somnolent but arousable. She is confused. Cranial nerves are intact. She has equal strength throughout but is generally weak. DIAGNOSTIC STUDIES LABORATORY STUDIES: Hematocrit is 30, down from 32.5 two weeks ago. Normal white count and platelet count. SMA 12 - glucose 130, BUN 59, creatinine 1.8, up from a BUN of 50, creatinine of 1.4 three weeks ago. Sodium 134, CO2 21, calcium 8.3, alk phos 118. Urinalysis - positive leukocyte esterase and nitrates with enumerable white cells, 1+ bacteria. IMAGING STUDIES: Chest x-ray shows bilateral opacities, could represent congestive heart failure. Head CT - no acute disease unchanged. CARDIOLOGY STUDIES: EKG shows normal sinus rhythm rate 76, left bundle branch block, which was noted previously. ASSESSMENT 1. Altered mental status likely toxic metabolic encephalopathy. Unit #: [id number] #: [id number] Patient: ANTHONY HOLLIS 2. Bilateral opacities on chest x-ray. 3. UTI with history of ESBL. 4. AODM. 5. Right upper quadrant tenderness. 6. Dementia. 7. COPD. 8. Hypertension. 9. Morbid obesity. 10. Chronic kidney disease. PLANS 1. Check BNP, echo, CT scan of the chest and upper abdomen along with cardiac enzymes. 2. Obtain ABG. 3. Meropenem and Zyvox for now. 4. DVT prophylaxis. 5. Further workup and consultants depending on above. Dictated by Darlin Montoya M.D. AML/ts TD: 10/01/2016 05:38 JOB #: [id number] CC: Ronaldo Stanton M.D. HISTORY AND PHYSICAL Page 1 of 1 X Darlin Montoya MD X HISTORY AND PHYSICAL
--- NOTE | ~2016-10-01 | CO ---
Unit #: [id number] #: [id number] Patient: ANTHONY HOLLIS [id number] [address] [place], [place] [address] [id number] MR#: [id number] NAME: ANTHONY HOLLIS. ROOM: 323 Age: 76 Sex: F Admission Date: 10/01/2016 : 1940 Attending Physician: Latonia Feliz M.D. Primary Care Physician: Mulugeta Paredes Jr., M.D. CONSULTATION REPORT REASON FOR CONSULTATION Elevated troponin. HISTORY OF PRESENT ILLNESS This is a 76-year-old white female, who was transferred from the longterm with altered mental status. She was discharged from this facility on 09/16/2014, where she was admitted with acute kidney injury and urinary tract infection. She was noted to have bilateral opaque densities on chest x-ray. Urinalysis was positive for urinary tract infection. The patient is a poor historian and is unable to provide a history, because of dementia. She does complain of abdominal discomfort. Otherwise, her history is unreliable. She was noted to have elevated creatinine of 1.6. Troponin also elevated at 0.14. EKG shows old left bundle-branch block, that was noted on previous EKGs. When asked, the patient denies chest pain. She does complain of shortness of breath. From a cardiac standpoint, the patient has risk factors for ischemic heart disease. It includes hypertension, hyperlipidemia, diabetes, obesity, and family history of premature coronary artery disease as per old dictations. She had a cardiac catheterization in 2007, where she was found to have nonobstructive coronary artery disease. PAST MEDICAL HISTORY 1. Cardiac catheterization in 12/2007 showed an ejection fraction equal to 50%. There was minimal luminal irregularities in the LAD, right coronary artery, and circumflex. 2. Hypertension. 3. Hyperlipidemia. 4. Diabetes mellitus, type 2. 5. COPD. 6. Chronic left bundle-branch block. 7. Chronic kidney disease. 8. Dementia. 9. Obesity. 10. Nonsmoker. 11. [facility] resident. PAST SURGICAL HISTORY According to previous records, she has had a hysterectomy. SOCIAL HISTORY The patient was residing in a longterm. She is a lifelong nonsmoker. There was no record of illicit drug or alcohol use. Unit #: [id number] #: [id number] Patient: ANTHONY HOLLIS FAMILY HISTORY According to previous dictations, the patient's brother in his 50s from myocardial infarction. ALLERGIES Aspirin. HOME MEDICATIONS Advair 250/50 Diskus one inhalation daily; Humulin 70/30, 22 units subcu b.i.d.; venlafaxine HCl 75 mg daily; vitamin B12 1000 mcg daily; simvastatin 10 mg daily; sodium bicarbonate 650 mg b.i.d.; Norvasc 5 mg daily; propranolol 10 mg b.i.d.; Mucinex D one tablet b.i.d.; probiotic 250 mg b.i.d.; acetaminophen 650 mg q.6 hours p.r.n.; bisacodyl p.r.n.; Fleet enema p.r.n.; Glucophage p.r.n.; milk of magnesia 30 mL daily p.r.n.; MiraLAX 17 g daily p.r.n. REVIEW OF SYSTEMS The patient's review of systems unreliable, because of dementia. PHYSICAL EXAMINATION VITAL SIGNS: Blood pressure 134/83, heart rate 82, temperature 98.3. BMI is 37. GENERAL: This is a 76-year-old elderly white female, who is in mild respiratory distress. NEUROLOGIC: She is awake, alert, and oriented to self. Confused to time and place. There are no focal weaknesses. NECK: Trachea is midline. No thyromegaly or lymphadenopathy. No jugular venous distention. HEART: S1 and S2. Heart sounds are normal. No murmurs, rubs, or clicks. Regular rate and rhythm. LUNGS: Clear to auscultation without rales, rhonchi, or wheezing. Noted to be tachypneic. ABDOMEN: Soft and nontender with bowel sounds are present. EXTREMITIES: Without leg edema. SKIN: Warm and dry. DIAGNOSTIC STUDIES LABORATORY RESULTS: Glucose 131, BUN 53, creatinine 1.6. Sodium 139, potassium 4.5. CK total 377, MB 3.8, MB index 1.0. Troponin less than 0.05 to 0.14 to 0.11. BNP 156. White count 9.1, hemoglobin 9.9, hematocrit 29.2, platelet count 208. IMAGING STUDIES: Chest x-ray shows stable cardiomegaly. New diffuse pulmonary edema is present. CT of the head shows no acute findings. CT of the chest shows chronic interstitial opaque densities in both lungs. No new pulmonary findings. CARDIOVASCULAR STUDIES: EKG; normal sinus rhythm, rate of 74 beats per minute with left axis deviation. There was loss of R-wave in the anterior leads. Left bundle-branch block. IMPRESSION 1. Bilateral opaque densities, rule out pneumonia. Unit #: [id number] #: [id number] Patient: ANTHONY HOLLIS 2. Urinary tract infection. 3. Right quadrant pain. 4. Elevated troponin, peaked at 0.14. 5. Hypertension. 6. Hyperlipidemia. 7. Diabetes mellitus, type 2. 8. Chronic left bundle-branch block. 9. Chronic kidney disease. 10. Normal coronaries per cardiac catheterization in 2007. PLAN 1. Cardiology was consulted for elevated troponin. The troponin is nondiagnostic for ischemic heart disease. EKG shows nonspecific intraventricular conduction defect. 2. We will discontinue aspirin because of allergy. 3. Start on Plavix. 4. Conservative medical management for now. 5. The patient is hyperventilating and asking for her family. We discussed with family about her code status. 6. Continue current medications with beta-manisha and statin. 7. We will follow the patient with you. Thank you for allowing us to assist in this patient's care. Dictated by... Angie Sweet/maximilian TD: 10/02/2016 01:09 JOB #: [id number] CC: Fatuma Marcus M.D. CONSULTATION REPORT Page 1 of 1 X Tate Padilla APRN X CONSULTATION REPORT
--- NOTE | ~2016-10-01 | CR63 ---
[facility] A Service of [facility] RADIOLOGY TEXT RESULTS PATIENT: ANTHONY HOLLIS LOCATION: A 224-01 : 42 UNIT #: [id number] AGE: [address]: Latonia Feilz MD SEX: F ORDER DR: [id number] [facility] [address] [facility]. [place], [place] [address] [id number] I MR#: [id number] #: [id number] NAME: ANTHONY HOLLIS. : 1940 SEX: F STUDY DATE/TIME: 10/02/2016 8:50 UNIT: C3A PCU ROOM: 323 STUDY DESCRIPTION: CR Chest 2 View Attending Physician: Latonia Feliz M.D. Ordering Physician: Latonia Feliz M.D. Primary Care Physician: Mulugeta Paredes Jr., M.D. MEDICAL IMAGING REPORT This report is preliminary unless electronic signature is present EXAM PA and lateral chest date 10/02/2016 at 08:50 HISTORY Shortness of breath, cough and confusion today. COMPARISON AP portable chest 10/01/2016 FINDINGS Study is attenuated by body habitus. There is moderate generalized cardiac enlargement, probably not significantly changed allowing for differences in patient positioning. Bibasilar opacities partially obscure the diaphragmatic margins, favored to present changes of atelectasis. Asymmetric opacity in the paramediastinal and hilar region of the right lung, thought to represent both enlargement of the patient's right pulmonary artery and prominent pericardial fat pad and proliferation of anterior mediastinal fat, demonstrated to better advantage on the CT chest performed 1 day prior. Mild peripheral opacity in the left midlung likely corresponding to an area of fibrosis seen on yesterday's CT chest. No pneumothorax is seen. IMPRESSION 1. Probable mild bibasilar atelectasis. 2. Opacity in the paramediastinal and perihilar region of the right lung thought to represent combination of proliferation of the mediastinal fat and prominence of the right pulmonary artery. This is unchanged from previous chest radiographs. Suspected chronic peripheral interstitial fibrosis in the left midlung. 3. Stable cardiomegaly. 4. The study is limited by patient body habitus. [facility] A Service of [facility] RADIOLOGY TEXT RESULTS PATIENT: ANTHONY HOLLIS LOCATION: [facility] 224-01 : 42 UNIT #: [id number] AGE: [address]: Latonia Feliz MD SEX: F ORDER DR: Dictated by... Mahogany Moore M.D. THIS IS AN ELECTRONICALLY VERIFIED REPORT Mahogany Moore M.D. at 10/03/2016 7:04 AM ANTHONY/saúl TD: 10/02/2016 14:40 JOB #: [id number] MEDICAL IMAGING REPORT Page 1 of 1 COPY
--- NOTE | ~2016-10-01 | EKG ---
PATIENT: ANTHONY HOLLIS UNIT #: [id number] Ventricular Rate: 76 BPM Atrial Rate: 79 BPM P-R Interval: 182 ms QRS Duration: 134 ms Q-T Interval: 464 ms QTC Calculation(Bezet): 522 ms P [place]: 54 degrees Calculated R Melrose: -107 degrees Calculated T Mel[place]: 51 degrees Diagnosis Line: Normal sinus rhythm Diagnosis Line: Non-specific intra-ventricular conduction block Diagnosis Line: Possible Anterolateral infarct , age undetermined Diagnosis Line: Abnormal ECG Diagnosis Line: When compared with ECG of 11-SEP-2016 10:43, Diagnosis Line: QRS axis Shifted left Diagnosis Line: Nonspecific T wave abnormality now evident in Diagnosis Line: Inferior leads Diagnosis Line: T wave inversion no longer evident in Lateral Diagnosis Line: leads Diagnosis Line: QT has lengthened Diagnosis Line: Confirmed by DEION POSADAS MD ([id number]) on 10/01/2016 Diagnosis Line: 10:13:01 PM INTERPRETING MD: KATHARINA URRUTIA
[2016-10-01 02:25] LABS: BASOPHIL# 0.1 X10e3 (0-0.3); BASOPHIL% 0.6 % (0-2.5); EOSINOPHIL# 0.3 X10e3 (0-0.7); EOSINOPHIL% 2.8 % (0.0-7.0); HEMATOCRIT 29.9 % (35.0-45.0); HEMOGLOBIN 10.1 gm/dL (12.0-16.0); LYMPHOCYTE# 1.7 X10e3 (1.0-3.5); LYMPHOCYTE% 17.1 % (17.0-45.0); MEAN CELL VOLUME 98.5 FL (83-96); MEAN CORPUSCULAR HEMOGLOBIN 33.4 PG (28-34); MEAN CORPUSCULAR HGB CONC 33.9 g/dL (30-36); MEAN PLATELET VOLUME 8.1 FL (6.5-11.5); MONOCYTE# 0.9 X10e3 (0-1.0); MONOCYTE% 8.6 % (3.0-12.0); NEUTROPHIL% 70.9 % (40-75); PLATELET COUNT 215 X10e3 (140-420); RED BLOOD COUNT 3.04 X10e (3.90-5.30); WHITE BLOOD COUNT 9.9 X10e3 (4.0-10.5)
[2016-10-01 02:26] LABS: DIFF IND NO
[2016-10-01 02:47] LABS: URINE SOURCE CLEAN CATCH
[2016-10-01 02:49] LABS: ALBUMIN SERUM 3.5 g/dL (3.5-5.0); BILIRUBIN, DIRECT 0.1 mg/dL (0.0-0.2); BILIRUBIN,INDIRECT 0.4 mg/dL (0.0-0.9); BILIRUBIN,TOTAL 0.5 mg/dL (0.2-2.0); BUN/CREATININE RATIO 32.77; CALCIUM SERUM 8.3 mg/dL (8.4-10.2); CREATININE SERUM 1.8 mg/dL (0.6-1.4); GLOM FILT RATE Estimated 27.3 mL/min (>60); POTASSIUM 4.6 mmol/L (3.5-5.1); PROTEIN TOTAL SERUM 7.4 g/dL (6.0-8.3)
[2016-10-01 02:52] LABS: URINE APPEARANCE TURBID; URINE BILIRUBIN NEG (NEG); URINE BLOOD 1+ (NEG); URINE COLOR YELLOW; URINE GLUCOSE NEG (NEG); URINE KETONE NEG (NEG); URINE LEUKOCYTE ESTERASE 3+ (NEG); URINE NITRATE POS (NEG); URINE PROTEIN NEG (NEG); URINE SPECIFIC GRAVITY 1.015 (1.003-1.035); URINE UROBILINOGEN 0.2 MG/DL (NEG)
[2016-10-01 02:54] LABS: CULTURE INDICATED? YES; U HYALINE CASTS AUWI 0-2 /[LPF]; URINE BACTERIA AUWI 1+ (NEGATIVE); URINE SQUAMOUS EPITHELIAL CELL OCC /[HPF]; UWBCS1 AUWI INNUM (0-5)
[2016-10-01 05:20] LABS: ARTERIAL BLOOD GAS PCO2 39.9 mmHg (35.0-45.0); ARTERIAL BLOOD GAS pH 7.349 (7.350-7.450)
[2016-10-01 05:21] LABS: ARTERIAL BLD GAS O2 SATURATION 97.8 % (90.0-100.0); ARTERIAL BLOOD GAS ALLEN TEST NORMAL; ARTERIAL BLOOD GAS ART SITE LEFT RADIAL; ARTERIAL BLOOD GAS CARBOXY HB 0.8 %sat (0.0-9.0); ARTERIAL BLOOD GAS DELIVERY NASAL CANNULA; ARTERIAL BLOOD GAS PO2 98.5 mmHg (80.0-100); ARTERIAL DRAW? YES
[2016-10-01 07:01] LABS: %MB 1.1 % (0.0-4.0); MB 3.9 ng/ml
[2016-10-01 07:08] LABS: BASOPHIL% 0.3 % (0-2.5); EOSINOPHIL# 0.3 X10e3 (0-0.7); EOSINOPHIL% 2.7 % (0.0-7.0); HEMATOCRIT 29.2 % (35.0-45.0); HEMOGLOBIN 9.9 gm/dL (12.0-16.0); LYMPHOCYTE# 1.9 X10e3 (1.0-3.5); LYMPHOCYTE% 20.7 % (17.0-45.0); MEAN CELL VOLUME 97.2 FL (83-96); MEAN CORPUSCULAR HEMOGLOBIN 33.1 PG (28-34); MEAN CORPUSCULAR HGB CONC 34.1 g/dL (30-36); MEAN PLATELET VOLUME 7.7 FL (6.5-11.5); MONOCYTE# 0.8 X10e3 (0-1.0); MONOCYTE% 8.6 % (3.0-12.0); NEUTROPHIL# 6.2 X10e3 (1.5-7.1); NEUTROPHIL% 67.7 % (40-75); PLATELET COUNT 208 X10e3 (140-420); WHITE BLOOD COUNT 9.1 X10e3 (4.0-10.5)
[2016-10-01 07:11] LABS: DIFF IND NO
[2016-10-01 07:44] LABS: BUN/CREATININE RATIO 33.12; CALCIUM SERUM 8.6 mg/dL (8.4-10.2); CREATININE SERUM 1.6 mg/dL (0.6-1.4); GLOM FILT RATE Estimated 31.4 mL/min (>60); POTASSIUM 4.5 mmol/L (3.5-5.1)
[2016-10-01] MEDS ORDERED: MUCINEX D ER T1 EAC1 PO (11:47)
[2016-10-01] MEDS ORDERED: DIGESTIVE PROB250 MG PO (11:48)
[2016-10-01] MEDS ORDERED: DESYREL50 MG PO ×2 (11:51→12:13)
[2016-10-01] MEDS ORDERED: HYDROCODON-ACE1 EAC7 PO ×2 (11:53→12:12)
[2016-10-01] MEDS ORDERED: TYL325 PO (11:53)
[2016-10-01] MEDS ORDERED: DULCOLAX10 MG (11:54)
[2016-10-01] MEDS ORDERED: FLEET ENEMA133 ML (11:55)
[2016-10-01] MEDS ORDERED: GLUCAGEN1 MG (11:56)
[2016-10-01] MEDS ORDERED: MIRALAX17 GM PO (11:57)
[2016-10-01] MEDS ORDERED: MILK OF MAGNESIA PO (11:57)
[2016-10-01] MEDS ORDERED: BISACODYL EC5 M1 (11:58)
[2016-10-01] MEDS ORDERED: SEROQUEL50 M1 PO (12:13)
[2016-10-01] MEDS ORDERED: GLUCOPHAGE XR500 MG PO (12:13)
[2016-10-01 14:10] LABS: MB 3.8 ng/ml
[2016-10-01 18:16] LABS: MB 3.4 ng/ml
[2016-10-02 06:05] LABS: HEMATOCRIT 29.8 % (35.0-45.0); HEMOGLOBIN 10.1 gm/dL (12.0-16.0); MEAN CORPUSCULAR HEMOGLOBIN 33.2 PG (28-34); MEAN CORPUSCULAR HGB CONC 33.9 g/dL (30-36); MEAN PLATELET VOLUME 7.6 FL (6.5-11.5); RED BLOOD COUNT 3.04 X10e (3.90-5.30); RED CELL DISTRIBUTION WIDTH 13.3 % (11.0-15.5); WHITE BLOOD COUNT 8.1 X10e3 (4.0-10.5)
[2016-10-02 07:29] LABS: ALBUMIN SERUM 3.3 g/dL (3.5-5.0); BILIRUBIN,TOTAL 0.6 mg/dL (0.2-2.0); BUN/CREATININE RATIO 32.5; CALCIUM SERUM 9.2 mg/dL (8.4-10.2); CREATININE SERUM 1.2 mg/dL (0.6-1.4); GLOM FILT RATE Estimated 44.5 mL/min (>60); POTASSIUM 4.8 mmol/L (3.5-5.1); PROTEIN TOTAL SERUM 6.7 g/dL (6.0-8.3)
[2016-10-02 07:54] LABS: CHOLESTEROL 127 mg/dL (0-200); HDL CHOLESTEROL 37 mg/dL (35-95); LDL CHOLESTEROL 72 mg/dL (-130); LDL/HDL RATIO 2 RATIO (0-4); TRIGLYCERIDES 89 mg/dL (10-160)
[2016-10-03 05:14] LABS: HEMATOCRIT 28.3 % (35.0-45.0); HEMOGLOBIN 9.6 gm/dL (12.0-16.0); MEAN CELL VOLUME 98.5 FL (83-96); MEAN CORPUSCULAR HEMOGLOBIN 33.5 PG (28-34); MEAN PLATELET VOLUME 7.7 FL (6.5-11.5); RED BLOOD COUNT 2.88 X10e (3.90-5.30); RED CELL DISTRIBUTION WIDTH 13.4 % (11.0-15.5); WHITE BLOOD COUNT 7.5 X10e3 (4.0-10.5)
[2016-10-03 05:40] LABS: CALCIUM SERUM 8.4 mg/dL (8.4-10.2); GLOM FILT RATE Estimated 55.5 mL/min (>60); POTASSIUM 4.6 mmol/L (3.5-5.1)
[2016-10-04 09:30] LABS: HEMATOCRIT 34.1 % (35.0-45.0); HEMOGLOBIN 11.3 gm/dL (12.0-16.0); MEAN CELL VOLUME 99.1 FL (83-96); MEAN CORPUSCULAR HEMOGLOBIN 32.8 PG (28-34); MEAN CORPUSCULAR HGB CONC 33.1 g/dL (30-36); MEAN PLATELET VOLUME 7.8 FL (6.5-11.5); RED BLOOD COUNT 3.44 X10e (3.90-5.30); WHITE BLOOD COUNT 9.4 X10e3 (4.0-10.5)
[2016-10-04 10:11] LABS: ALBUMIN SERUM 3.3 g/dL (3.5-5.0); BILIRUBIN,TOTAL 0.6 mg/dL (0.2-2.0); CALCIUM SERUM 8.7 mg/dL (8.4-10.2); GLOM FILT RATE Estimated 55.5 mL/min (>60); PROTEIN TOTAL SERUM 6.4 g/dL (6.0-8.3)
== END 2016-10-04 18:21 | disposition home or self-care (01) | DRG 689 ==
LOC: CED 01:55 → CEDOF 04:45 → C3A PCU 10:09 → C2A 10-02 17:55
PROVIDERS: Emergency Medicine; Internal Medicine
PROC: B246ZZZ Ultrasonography of Right and Left Heart (ICD-10-PCS; principal; 2016-10-01)
DX: N39.0 Urinary tract infection, site not specified (principal); G92 Toxic encephalopathy; J96.01 Acute respiratory failure with hypoxia; N17.9 Acute kidney failure, unspecified; F03.90 Unspecified dementia, unspecified severity, without behavioral disturbance, psychotic disturbance, mood disturbance, and anxiety; E11.9 Type 2 diabetes mellitus without complications; I12.9 Hypertensive chronic kidney disease with stage 1 through stage 4 chronic kidney disease, or unspecified chronic kidney disease; B96.20 Unspecified Escherichia coli [E. coli] as the cause of diseases classified elsewhere; E66.2 Morbid (severe) obesity with alveolar hypoventilation; J44.9 Chronic obstructive pulmonary disease, unspecified; N18.2 Chronic kidney disease, stage 2 (mild); Z90.710 Acquired absence of both cervix and uterus; Z66 Do not resuscitate; F41.9 Anxiety disorder, unspecified; F32.9 Major depressive disorder, single episode, unspecified; E53.8 Deficiency of other specified B group vitamins
CPT/HCPCS: 36415; 36600; 70450; 71010; 71020; 71250; 74150; 80048; 80053; 80061; 80076; 81003; 82550; 82553; 82803; 82947; 83880; 84484; 85025; 85027; 87040; 87086; 87088; 87186; 93005; 93306; 94760; 96360; 97162; 97165; 97530; 97535; 99285; G8978-GP; G8979-GP; G8987-GO; G8988-GO; G8989-GO; J1650; J1815; J2020; J2185; J2543

== ENCOUNTER 2016-10-10 23:59 | Inpatient (IN) | payer MEDICARE, OTHER ==
--- NOTE | ~2016-10-10 | HP ---
Unit #: [id number] #: [id number] Patient: ANTHONY HOLLIS [id number] [address] [place], [place] [address] [id number] I MR#: [id number] NAME: ANTHONY HOLLIS. ROOM: 59716 Age: 76 Sex: F Admission Date: 10/11/2016 : 1940 Attending Physician: Darlin Montoya M.D. Primary Care Physician: Mulugeta Paredes Jr., M.D. HISTORY AND PHYSICAL CHIEF COMPLAINT Confusion, shortness of breath, urinary tract infection. HISTORY This 76-year-old female with dementia, chronic kidney disease, essential hypertension, AODM, [facility]. The patient was most recently admitted to this facility ten days ago for ESBL UTI and toxic metabolic encephalopathy. [facility] mer[facility]em, which finished three days ago. At the [facility] apparently was short of breath, and was sent back to this facility for further treatment. Urine showed significant pyuria. Chest x-ray is chronically abnormal but no worse than before. The patient was treated with Solu-Medrol, 500 mg of normal saline bolus, then given 40 mg of IV Lasix, meropenem. Her initial blood pressure was a bit on the low side 88/71 but did improve. At this time the patient is just fairly confused but denies complaints. PAST MEDICAL HISTORY 1. Dementia. 2. Chronic kidney disease. 3. Essential hypertension. 4. AODM. 5. Cardiac catheterization 02/2007 showing minimal luminal irregularities. The patient has a chronic left bundle branch block. 6. Hyperlipidemia. 7. Morbid obesity. 8. Chronic immobilization. 9. GERD. 10. Anxiety and depression, possibly bipolar disorder per [facility] records. 11. B12 deficiency. 12. COPD. 13. Hysterectomy. ALLERGIES Aspirin. CORRECTION MEDICATIONS Metformin 500 mg q. a.m.; Norvasc 5 mg daily; Zocor 10 mg q.h.s.; Plavix 75 mg daily; Effexor 75 mg daily; B12 1,000 mcg daily; Seroquel 25 in the morning and 100 mg q.h.s.; Florastor 250 mg b.i.d.; propranolol 10 mg b.i.d.; Advair 250/50 one puff b.i.d.; sodium bicarb 650 mg b.i.d.; Ativan Unit #: [id number] #: [id number] Patient: ANTHONY HOLLIS 1 mg q.6 hours as needed p.r.n. Tylenol; Dulcolax; enema; glucagon; MOM; MiraLAX as needed; Novolin 70/30 22 units subcu b.i.d.; Magic butt cream q. shift. FAMILY HISTORY Unobtainable. SOCIAL HISTORY The patient lives at [facility] under the care of Dr. Jc Singh. Does not smoke tobacco or drink alcohol. REVIEW OF SYSTEMS Difficult to obtain as patient is confused. PHYSICAL EXAMINATION GENERAL: Confused, morbidly obese, 76-year-old female who is somnolent but arousable. VITAL SIGNS: Temperature 98.1, initial blood pressure 88/71 but improved to 129/58, O2 saturation currently is 95% on 2 L of oxygen, respirations 20, pulse is 79. HEENT: Eyes - PERRLA, extraocular muscles are intact. Pharynx dry mucosal membranes. NECK: Supple without adenopathy or thyromegaly. No JVD that I can see. CHEST: Actually fairly clear. CARDIAC: Normal S1 and S2 without murmur. ABDOMEN: Bowel sounds are present. No hepatosplenomegaly, tenderness or masses. EXTREMITIES: With mild edema. NEUROLOGIC: Patient was somnolent but did arouse. Cranial nerves are intact. She has equal strength throughout and follows commands but is weak throughout. She is oriented to person only. DIAGNOSTIC STUDIES ADMISSION LABS: Hematocrit is 28 down from 34.1 seven days ago but was 28.3 before that. White blood count 10.6, normal platelet count. Coags are normal. SMA 12 - glucose 196, BUN 32, calcium 8.1, magnesium 1.5, albumin 3, alk phos 128, normal lipase. BNP minimally elevated 156. Urinalysis 100 to 200 white blood cells, but no bacteria, no squamous cells are seen. IMAGING STUDIES: Chest x-ray shows cardiomegaly and diffuse interstitial opacities, which are unchanged from before. CARDIOLOGY STUDIES: EKG - sinus rhythm rate 70 with a left bundle branch block, which was noted previously. ASSESSMENT 1. Possible ESBL UTI. CT scan of the abdomen last week was negative. 2. Possible toxic metabolic encephalopathy. The patient has underlying dementia. 3. Chronic abnormal chest x-ray. The patient did have mild dyspnea. Less likely this represents congestive heart failure however. 4. Bipolar disorder versus depression. 5. AODM. 6. Dementia. 7. Morbid obesity. 8. Chronic kidney disease. 9. Immobilization syndrome. Unit #: [id number] #: [id number] Patient: ANTHONY HOLLIS 10. COPD. PLANS 1. Will treat with meropenem pending cultures. 2. Patient received one dose of Lasix. Will obtain an echo. 3. Venous Dopplers of the legs to rule out DVT. 4. DVT prophylaxis. 5. Decreased Seroquel for now and hold Ativan. Dictated by Darlin Montoya M.D. AML/ts TD: 10/11/2016 06:49 JOB #: [id number] CC: Jc Singh Jr., M.D. HISTORY AND PHYSICAL Page 1 of 1 X Darlin Montoya MD X HISTORY AND PHYSICAL
--- NOTE | ~2016-10-10 | US84 ---
[id number] [facility] [address] [place], [place] [address] [id number] I MR#: [id number] Acc #: [id number] NAME: ANTHONY HOLLIS : 1940 SEX: F STUDY DATE/TIME: 10/11/2016 8:47 [facility] 7[address]20 STUDY DESCRIPTION: US LE Veins Complete Daren Stdy Attending Physician: Latonia Feliz M.D. Ordering Physician: Darlin Montoya M.D. Primary Care Physician: Mulugeta Paredes Jr., M.D. MEDICAL IMAGING REPORT This report is preliminary unless electronic signature is present EXAM Bilateral lower extremity venous Doppler INDICATION Bilateral lower extremity swelling and shortness of breath for 1 week. TECHNIQUE Beck-scale, color Doppler and spectral Doppler waveform analysis was performed through both lower extremities. FINDINGS This patient has occlusive thrombus identified within the femoral vein within the mid and distal thigh. The remainder of the veins of the right lower extremity are patent and compressible. The patient's left common femoral, deep femoral, femoral, popliteal, anterior tibial, posterior tibial, peroneal and saphenous veins are all patent and compressible. IMPRESSION The study is positive for occlusive DVT involving the femoral vein within the mid and distal thigh. There is no evidence of SVT within the right lower extremity and there is no evidence of DVT within the left lower extremity. There is also no evidence of SVT within the left lower extremity. Dictated by... Mirtha Barker M.D. THIS IS AN ELECTRONICALLY VERIFIED REPORT Mirtha Barker M.D. at 10/11/2016 4:39 PM JOSELINE/harley TD: 10/11/2016 10:23 JOB #: [id number] MEDICAL IMAGING REPORT Page 1 of 1 COPY
--- NOTE | ~2016-10-10 | DS ---
Unit #: [id number] #: [id number] Patient: ANTHONY HOLLIS [id number] [address] [address] [id number] I MR#: [id number] NAME: ANTHONY HOLLIS. ROOM: 570 Age: 76 Sex: F Admission Date: 10/11/2016 : 1940 Discharge Date: Attending Physician: Latonia Feliz M.D. Primary Care Physician: Mulugeta Paredes Jr., M.D. DISCHARGE SUMMARY DISCHARGE DIAGNOSES 1. Extended spectrum beta-lactamase urinary tract infection. 2. Toxic metabolic encephalopathy. 3. Acute right leg deep vein thrombosis. 4. Bipolar disorder with depression and hallucinations. 5. Diabetes mellitus type 2, uncontrolled. 6. Alzheimer dementia. 7. Morbid obesity. 8. Chronic kidney disease stage 2. 9. Chronic obstructive pulmonary disease. 10. Chronic immobility, needing rehab. CONSULTATIONS None. PROCEDURES None. DIAGNOSTIC TESTING LAB DATA: Glucose 202, sodium 140, potassium 4.5, creatinine 1, albumin 3.3. INR 1. WBC 8.2, hemoglobin 11.3, platelets 310. Urine culture negative. IMAGING: Ultrasound is positive for occlusive DVT, femoral vein, within the mid and distal thigh. ALLERGIES Aspirin. DISCHARGE MEDICATIONS 1. Advair Diskus 250/50 mcg 1 puff inhalation b.i.d. 2. Sodium bicarbonate 650 p.o. b.i.d. 3. Tylenol 650 q.4 p.r.n. pain and fever. 4. Lovenox 100 mg subcu b.i.d. (stop if INR greater than or equal to 2). 5. Coumadin 5 mg p.o. daily. 6. Effexor 75 p.o. daily. 7. Metformin 500 daily. 8. Seroquel 25 daily. 9. Norvasc 5 daily. 10. Propranolol 10 mg p.o. b.i.d. 11. Zocor 10 mg daily. 12. Insulin 70/30 - 10 units subcu b.i.d. 13. NovoLog high-dose sliding scale a.c. and h.s. 14. Florastor 250 mg p.o. b.i.d. Unit #: [id number] #: [id number] Patient: ANTHONY HOLLIS 15. Plavix 75 daily. 16. Vitamin B12 - 1,000 mcg p.o. daily. 17. Meropenem 500 mg IV q.8 for 2 days. PLAN 1. Patient needs PT-INR checked on 10/16/2016. 2. Follow with Tan at rehab. After that, frequent PT-INR checks according to ProTime levels. HOSPITALIZATION COURSE A 76 year old admitted because of shortness of breath and confusion. Toxic metabolic encephalopathy from ESBL urinary tract infection. Currently she is alert, oriented but occasional hallucinations present. ESBL urinary tract infection. The patient is on IV meropenem. Continue with 2 more days. Acute right leg DVT. Started on Lovenox and Coumadin. Continue with Lovenox and stop is INR greater than or equal to 2. PT-INR to be checked at rehab and follow with Tan at rehab. Diabetes mellitus type 2. Continue with insulin. Dementia. Most likely Alzheimer. Stable. Chronic kidney disease stage 2. Stable. Discussed with sister, KAELYN, Ms. Domonique Gamez. Because of recurrent urinary tract infection, she wanted me to refer her to a urologist, which I did. The patient will be discharged to rehab. Discontinue Godoy catheter before discharge. Follow with Dr. Mcdaniels for recurrent urinary tract infection in 2 weeks. PT-INR to be checked on 10/16/2016. Follow with Tan at rehab. NOTE: Discharge time take is 32 minutes. Dictated by... Tan King/alondra TD: 10/14/2016 14:59 JOB #: [id number] DISCHARGE SUMMARY Page 1 of 1 X Latonia Feliz MD X DISCHARGE SUMMARY
--- NOTE | ~2016-10-10 | DS ---
Unit #: [id number] #: [id number] Patient: ANTHONY HOLLIS [id number] [address] [place], [place] [address] [id number] I MR#: [id number] NAME: ANTHONY HOLLIS. ROOM: 570 Age: 76 Sex: F Admission Date: 10/11/2016 : 1940 Discharge Date: Attending Physician: Latonia Feliz M.D. Primary Care Physician: Mulugeta Paredes Jr., M.D. DISCHARGE SUMMARY ADDENDUM The patient was not discharged on October 14 because we are waiting on a rehab bed but none of the rehab accepted her, so I discussed in detail with the daughter. She is going to take her home. She does have occasional hallucinations. It could be from her history of anxiety, depression, and bipolar. She will continue with lorazepam and Seroquel and follow with [facility] as an outpatient. Patient had CT of the head on October 01 which did not show any acute abnormalities, most likely it is metabolic. Urinary tract infection with ESBL: Patient completed her IV meropenem dose. Acute DVT on her right leg: Patient started on Lovenox and Coumadin. Currently, INR 1.2. The patient will have home health for PT/INR draw and follow with family physician. The patient will have Lovenox and Coumadin. Stop Lovenox once INR greater than or equal to 2. DISCHARGE MEDICATIONS 1. Advair 250/50 Diskus one puff inhalation b.i.d. 2. Sodium bicarbonate 650 p.o. b.i.d. 3. Tylenol 650 q.6 p.r.n. fever and pain. 4. Lovenox 100 mg subcutaneous b.i.d. Stop if INR greater than 2. 5. Coumadin 5 mg p.o. daily. 6. Effexor 75 daily. 7. Metformin 500 daily. 8. Seroquel 25 in the morning and 50 at bedtime. 9. Lorazepam 1 mg q.6 p.r.n. anxiety. 10. Norvasc 5 mg daily. 11. Propranolol 10 mg p.o. b.i.d. 12. Simvastatin 10 daily. 13. Novolin 70/30 at 17 units subcutaneous b.i.d. 14. Florastor 250 mg p.o. b.i.d. 15. Plavix 75 daily. 16. Vitamin B12 at 1000 mcg p.o. daily. Discussed with daughter in detail. Patient definitely needs [facility] followup with Dr. Hayes for her hallucinations and anxiety. Continue Seroquel and Lorazepam. Discharge time taken is 33 minutes. Unit #: [id number] #: [id number] Patient: ANTHONY HOLLIS Dictated by... Tan King TD: 10/17/2016 14:13 JOB #: [id number] DISCHARGE SUMMARY Page 1 of 1 X Latonia Feliz MD X DISCHARGE SUMMARY
--- NOTE | ~2016-10-10 | CO ---
Unit #: [id number] #: [id number] Patient: ANTHONY HOLLIS [id number] [facility] [address] [place], [place] [address] [id number] I MR#: [id number] NAME: ANTHONY HOLLIS. ROOM: 570 Age: 76 Sex: F Admission Date: 10/11/2016 : 1940 Attending Physician: Latonia Feliz M.D. Primary Care Physician: Mulugeta Paredes Jr., M.D. Consultation Date: 10/19/2016 CONSULTATION REPORT REASON FOR CONSULTATION Followup. DISCUSSION Ms. Anthony Hollis is a 76-year-old female, seen in room 570, bed 1 on 10/19/2016 at [facility]. The patient continues to have disorganized behavior, disorganized thought process, guarded, paranoid, attending to internal stimuli. The patient's vital signs; temperature 97.8, pulse 90, respirations 18, blood pressure 130/69, oxygen saturation 98%. The patient's blood glucose was 115 this morning. The patient was unable to give any coherent history, restless, anxious. The patient dressed in hospital attire. REVIEW OF SYSTEMS Complete review of systems is unremarkable. MENTAL STATUS EXAMINATION Vital signs; please see above. General appearance; the patient is moderately obese, dressed casually in hospital attire. Attention span and concentration, poor. Speech, rambling. Oriented in self. Mood and affect, labile. Thought process, circumstantial. Thought content; guarded, paranoid, attending to internal stimuli, unable to answer question about thoughts of harming self or others. Recent and remote memory, poor. Language, fair to poor. Fund of knowledge, impaired. Insight and judgment, impaired. DIAGNOSES Psychiatric: Major neurocognitive disorder secondary to Alzheimer disease with behavioral disturbances, F02.81; psychosis, not otherwise specified, F29.0. ASSESSMENT AND PLAN Recommending at this time to continue with current medication and treatment on the inpatient unit. Advised to add Risperdal 1 mg t.i.d. and transfer the patient to Geropsych Unit as soon as bed available. In the meantime, continue with current treatment. Dictated by... Solitario Hayes M.D. MADELINE/maximilian TD: 10/20/2016 13:56 Unit #: [id number] #: [id number] Patient: ANTHONY HOLLIS JOB #: [id number] CONSULTATION REPORT Page 1 of 1 X Solitario Hayes MD CONSULTATION REPORT
--- NOTE | ~2016-10-10 | CO ---
Unit #: [id number] #: [id number] Patient: ANTHONY HOLLIS [id number] [facility] [address] [facility]. [place], [place] [address] [id number] I MR#: [id number] NAME: ANTHONY HOLLIS. ROOM: 570 Age: 76 Sex: F Admission Date: 10/11/2016 : 1940 Attending Physician: Latonia Feliz M.D. Primary Care Physician: Mulugeta Paredes Jr., M.D. Consultation Date: 10/18/2016 CONSULTATION REPORT JOB NOTE: VERIFY MRN. REASON FOR CONSULTATION Confusion, psychosis, agitation. HISTORY OF PRESENT ILLNESS Ms. Anthony Hollis is a 76-year-old white female, seen in room 570, bed 1 on 10/18/2016 at [facility]. The patient was admitted on 10/11/2016 with shortness of air and confusion and urinary tract infection. The patient was treated. Has a history of dementia. The patient was dressed in hospital attire, seemed somewhat anxious, nervous, agitated, getting out of conversation, attending to internal stimuli. The patient was able to answer some questions, but confused, guarded, paranoid, agitation. The patient was given Haldol 10 mg, Cogentin 1 mg, Ativan 1 mg deep intramuscular IM for the above reason, which was effective. The patient was unable to give any reliable information. Medically treated while in the hospital. PAST PSYCHIATRIC HISTORY Remarkable for history of bipolar mood disorder, dementia, history of previous admission at [facility] in 2012. MEDICAL HISTORY History of chronic kidney disease, essential hypertension, AODM, cardiac catheterization showed minimal luminal irregularities, hyperlipidemia, morbid obesity, chronic immobilization, GERD, B12 deficiency, COPD. MEDICATIONS The patient is on metformin 500 mg in the morning, Norvasc, Zocor, Plavix, Effexor 75 mg daily, Seroquel 25 mg in the morning and 100 mg at bedtime, Florastor, propranolol, sodium bicarbonate, Ativan p.r.n. FAMILY HISTORY AND SOCIAL HISTORY Family history is unavailable at this time. No known history of any abuse. No known history of any substance abuse. REVIEW OF SYSTEMS Complete review of systems is remarkable for agitation as mentioned above. MENTAL STATUS EXAMINATION Vital signs; temperature is 97.8, pulse 75, blood pressure 163/50, oxygen saturation 95%. General appearance, the patient dressed in hospital attire. Attention span and concentration, poor. Speech, rambling. Orientation in self. Mood and affect were labile. Thought process, Unit #: [id number] #: [id number] Patient: ANTHONY HOLLIS. Thought content, guarded, paranoid, delusional, attending to internal stimuli. Recent and remote memory, poor. Disorganized behavior. Disorganized thought process. Language, fair to poor. Fund of knowledge, poor. Insight and judgment, impaired. DIAGNOSES Psychiatric: Psychosis, not otherwise specified, F29.0; delirium, F05; major neurocognitive disorder due to Alzheimer disease with behavior disturbances, F02.81. Secondary diagnosis: Deferred. Medical diagnosis: Please refer to H and P. Stressors: Psychosocial stressor. ASSESSMENT AND PLAN 1. Recommending at this time to monitor the patient's mood and behavior closely for self-harm, aggression. 2. Recommending the patient to be transferred to Geropsych Unit for psychiatric stabilization at this time. Please feel free to call if any question. The patient was given injection of Haldol 10 mg, Cogentin 1 mg, and Ativan 1 mg IM which was effective. Continue with current medication. In the meantime, we will continue to follow. Dictated by... Tan Phillips/maximilian TD: 10/19/2016 00:31 JOB #: [id number] CONSULTATION REPORT Page 1 of 1 X Solitario Hayes MD X CONSULTATION REPORT
--- NOTE | ~2016-10-10 | CO ---
Unit #: [id number] #: [id number] Patient: ANTHONY HOLLIS [id number] [facility] [address] [facility] [address] [place], [place] [address] [id number] I MR#: [id number] NAME: ANTHONY HOLLIS. ROOM: 570 Age: 76 Sex: F Admission Date: 10/11/2016 : 1940 Attending Physician: Latonia Feliz M.D. Primary Care Physician: Mulugeta Paredes Jr., M.D. Consultation Date: 10/21/2016 CONSULTATION REPORT REASON FOR CONSULTATION Followup. DISCUSSION Ms. Anthony Hollis is a 76-year-old white female, seen in room 570, bed 1, on 10/21/2016 at [facility]. The patient continues to be confused, guarded, paranoid, and attending to internal stimuli, but no agitation. Able to eat her breakfast. The patient was unable to give any reliable information, disorganized behavior, disorganized thought process, guarded, paranoid, and attending to internal stimuli. The patient's perinatal social worker is currently working on appropriate placement, but the patient has shown much improvement in the last 24 hours and possibly considering home. The patient was redirectable and cooperative. Denied any suicidal or homicidal ideation. REVIEW OF SYSTEMS Complete review of systems is unremarkable. MENTAL STATUS EXAMINATION General appearance, the patient dressed casually. Able to eat her breakfast appropriately, cooperative, and redirectable. Attention span and concentration, poor. Speech, slow and poor articulation. Oriented in self. Mood and affect, labile. Thought process, circumstantial. Thought content, guarded and paranoid, but denied any thoughts of harming self or others or any agitation. Redirectable and cooperative. Recent and remote memory, poor. Language, poor. Fund of knowledge, poor. Insight and judgment, impaired. DIAGNOSES Psychiatric: Major neurocognitive disorder secondary to Alzheimer disease with behavioral disturbances, F02.81. ASSESSMENT AND PLAN Recommending at this time to continue with current medication with a plan to see her family to evaluate as the patient seems to be at her baseline, showing improvement, redirectable, cooperative, and the patient may be able to go home and plan to follow up with in-home services. Please feel free to call if any questions, telephone #[phone]. Dictated by... Solitario Hayes M.D. SZ/modrojelio Unit #: [id number] #: [id number] Patient: ANTHONY HOLLIS TD: 10/21/2016 19:00 JOB #: [id number] CONSULTATION REPORT Page 1 of 1 X Solitario Hayes MD X CONSULTATION REPORT
--- NOTE | ~2016-10-10 | DS ---
Unit #: [id number] #: [id number] Patient: ANTHONY HOLLIS [id number] [address] [address] [id number] I MR#: [id number] NAME: ANTHONY HOLLIS. ROOM: 570 Age: 76 Sex: F Admission Date: 10/11/2016 : 1940 Discharge Date: Attending Physician: Latonia Feliz M.D. Primary Care Physician: Mulugeta Paredes Jr., M.D. DISCHARGE SUMMARY ADDENDUM Patient could not be released on October 17 because of waiting on rehab bed, but she was refused. Also, Geropsychiatry refused to take this patient. Patient was seen by Dr. Hayes. He started her on Risperdal. Currently, her hallucinations are better. Dr. Hayes said to discharge patient home. Discussed with the daughter, and she agrees to take the patient home. DISCHARGE MEDICATIONS (CONTINUED) 1. Lovenox has been discontinued. 2. Add Risperdal 1 mg p.o. 3 times daily, prescription given. DISPOSITION Discharge home with home health. DISCHARGE INSTRUCTIONS 1. PT-INR to be checked on October 22, 2016, and October 24, 2016, and follow with primary care physician with results. 2. Follow with Dr. Hayes in two week's time for hallucinations. 3. Follow with primary care physician in one to two week's time. Discharge time taken is 33 minutes. Dictated by... Tan King TD: 10/21/2016 16:53 JOB #: [id number] DISCHARGE SUMMARY Page 1 of 1 X Latonia Feliz MD X DISCHARGE SUMMARY
--- NOTE | ~2016-10-10 | EKG ---
PATIENT: ANTHONY HOLLIS UNIT #: [id number] Ventricular Rate: 69 BPM Atrial Rate: 69 BPM P-R Interval: 180 ms QRS Duration: 132 ms Q-T Interval: 438 ms QTC Calculation(Bezet): 469 ms P [place]: 54 degrees Calculated R [place]: -7 degrees Calculated T [place]: 92 degrees Diagnosis Line: Normal sinus rhythm Diagnosis Line: Left bundle branch block Diagnosis Line: Abnormal ECG Diagnosis Line: When compared with ECG of 01-OCT-2016 11:45, Diagnosis Line: T wave inversion now evident in Lateral leads Diagnosis Line: Confirmed by TIFFANIE SINGER MD ([id number]) on Diagnosis Line: 10/12/2016 6:36:59 AM INTERPRETING MD: LARISA
--- NOTE | ~2016-10-10 | CR72 ---
[facility] A Service of [facility] & [facility] RADIOLOGY TEXT RESULTS PATIENT: ANTHONY HOLLIS LOCATION: [facility] : 42 UNIT #: [id number] AGE: [address]: Jake Anderson MD SEX: F ORDER DR: [id number] [facility] [address] [place], [place] [address] [id number] MR#: [id number] Acc #: [id number] NAME: ANTHONY HOLLIS : 1940 SEX: F STUDY DATE/TIME: 10/11/2016 0:02 UNIT: [facility] ROOM: STUDY DESCRIPTION: CR Chest Single View Portable Attending Physician: Jake Anderson M.D. Ordering Physician: Jake Anderson M.D. Primary Care Physician: Mulugeta Paredes Jr., M.D. MEDICAL IMAGING REPORT This report is preliminary unless electronic signature is present EXAM Portable chest INDICATIONS Shortness of air beginning tonight. COMPARISON 10/02. FINDINGS This portable view of the chest shows cardiomegaly with diffuse infiltrates suggesting CHF. There has been very little change from the old study. Dictated by... Brayan Zapata M.D. THIS IS AN ELECTRONICALLY VERIFIED REPORT Brayan Zapata M.D. at 10/11/2016 5:04 AM FAYE/dave TD: 10/11/2016 01:45 JOB #: [id number] MEDICAL IMAGING REPORT Page 1 of 1 COPY
[~2016-10-10 23:59] MED LIST changes: +BISACODYL EC5 M1; +DESYREL50 MG PO; +DIGESTIVE PROB250 MG PO; +DULCOLAX10 MG; +FLEET ENEMA133 ML; +GLUCAGEN1 MG; +HYDROCODON-ACE1 EAC7 PO; +MILK OF MAGNESIA PO; +MIRALAX17 GM PO; +MUCINEX D ER T1 EAC1 PO; +SEROQUEL50 M1 PO; +TYL325 PO
[2016-10-11 03:09] LABS: URINE SOURCE CLEAN CATCH
[2016-10-11 03:13] LABS: BILIRUBIN,TOTAL 0.6 mg/dL (0.2-2.0); BUN/CREATININE RATIO 26.66; CALCIUM SERUM 8.1 mg/dL (8.4-10.2); CREATININE SERUM 1.2 mg/dL (0.6-1.4); GLOM FILT RATE Estimated 44.5 mL/min (>60); MAGNESIUM 1.5 mg/dL (1.6-3.0); POTASSIUM 4.6 mmol/L (3.5-5.1); PROTEIN TOTAL SERUM 6.5 g/dL (6.0-8.3)
[2016-10-11 03:14] LABS: BASOPHIL# 0.1 X10e3 (0-0.3); BASOPHIL% 0.6 % (0-2.5); EOSINOPHIL# 0.3 X10e3 (0-0.7); HEMATOCRIT 27.9 % (35.0-45.0); HEMOGLOBIN 9.3 gm/dL (12.0-16.0); LYMPHOCYTE# 1.4 X10e3 (1.0-3.5); LYMPHOCYTE% 13.6 % (17.0-45.0); MEAN CELL VOLUME 99.4 FL (83-96); MEAN CORPUSCULAR HEMOGLOBIN 33.3 PG (28-34); MEAN CORPUSCULAR HGB CONC 33.5 g/dL (30-36); MEAN PLATELET VOLUME 7.8 FL (6.5-11.5); MONOCYTE# 0.8 X10e3 (0-1.0); MONOCYTE% 7.7 % (3.0-12.0); NEUTROPHIL% 75.1 % (40-75); PLATELET COUNT 267 X10e3 (140-420); RED BLOOD COUNT 2.81 X10e (3.90-5.30); RED CELL DISTRIBUTION WIDTH 13.2 % (11.0-15.5); WHITE BLOOD COUNT 10.6 X10e3 (4.0-10.5)
[2016-10-11 03:15] LABS: BILIRUBIN, DIRECT 0.1 mg/dL (0.0-0.2); BILIRUBIN,INDIRECT 0.5 mg/dL (0.0-0.9)
[2016-10-11 03:21] LABS: DIFF IND NO
[2016-10-11 03:24] LABS: URINE APPEARANCE CLEAR; URINE BILIRUBIN NEG (NEG); URINE BLOOD NEG (NEG); URINE COLOR YELLOW; URINE GLUCOSE 100 MG/DL (NEG); URINE KETONE NEG (NEG); URINE LEUKOCYTE ESTERASE 2+ (NEG); URINE NITRATE NEG (NEG); URINE PROTEIN TRACE (NEG); URINE SPECIFIC GRAVITY 1.016 (1.003-1.035); URINE UROBILINOGEN 0.2 MG/DL (NEG)
[2016-10-11 03:24] LABS: PARTIAL THROMBOPLASTIN TIME 23.3 SECONDS (23.5-31.3); PROTHROMBIN TIME (PATIENT) 10.4 SECONDS (9.6-11.5)
[2016-10-11 03:27] LABS: CULTURE INDICATED? YES; URBCS1 AUWI 0-2 /[HPF] (0-2); URINE BACTERIA AUWI NEG (NEGATIVE); URINE SQUAMOUS EPITHELIAL CELL NONE SEEN /[HPF]; UWBCS1 AUWI 100-200 (0-5)
[2016-10-11] MEDS ORDERED: AMLODIPINE BESYL5 MG PO (04:58)
[2016-10-11] MEDS ORDERED: GLUCOPHAGE500 MG PO (04:58)
[2016-10-11] MEDS ORDERED: ZOCOR-BORROW, D10 MG PO (04:58)
[2016-10-11] MEDS ORDERED: CLOPIDOGREL75 MG PO (04:58)
[2016-10-11] MEDS ORDERED: B-121000 MC1 PO (04:59)
[2016-10-11] MEDS ORDERED: EFFEXOR75 M3 PO (04:59)
[2016-10-11] MEDS ORDERED: FLORASTORKIDS250 MG PO (05:00)
[2016-10-11] MEDS ORDERED: SEROQUEL25 MG PO (05:00)
[2016-10-11] MEDS ORDERED: PROPRANOLOL HCL10 MG PO (05:00)
[2016-10-11] MEDS ORDERED: SODIUM BICARBO650 MG PO (05:01)
[2016-10-11] MEDS ORDERED: ADVAIR 250-501 EACH INH (05:01)
[2016-10-11] MEDS ORDERED: SEROQUEL100 MG PO (05:01)
[2016-10-11] MEDS ORDERED: ATIVAN PO (05:02)
[2016-10-11] MEDS ORDERED: ACETAMINOPHEN PO (05:02)
[2016-10-11] MEDS ORDERED: NOVOLIN 70100 UNITS/ SUBQ (05:03)
[2016-10-11 11:03] LABS: BASOPHIL% 0.2 % (0-2.5); HEMATOCRIT 29.7 % (35.0-45.0); HEMOGLOBIN 9.9 gm/dL (12.0-16.0); LYMPHOCYTE# 0.7 X10e3 (1.0-3.5); LYMPHOCYTE% 9.4 % (17.0-45.0); MEAN CELL VOLUME 98.9 FL (83-96); MEAN CORPUSCULAR HEMOGLOBIN 33.1 PG (28-34); MEAN CORPUSCULAR HGB CONC 33.5 g/dL (30-36); MEAN PLATELET VOLUME 7.5 FL (6.5-11.5); MONOCYTE% 0.6 % (3.0-12.0); NEUTROPHIL# 6.3 X10e3 (1.5-7.1); NEUTROPHIL% 89.8 % (40-75); PLATELET COUNT 254 X10e3 (140-420); RED CELL DISTRIBUTION WIDTH 13.2 % (11.0-15.5)
[2016-10-11 11:04] LABS: DIFF IND NO
[2016-10-11 11:42] LABS: BUN/CREATININE RATIO 25.83; CALCIUM SERUM 8.5 mg/dL (8.4-10.2); CREATININE SERUM 1.2 mg/dL (0.6-1.4); GLOM FILT RATE Estimated 44.5 mL/min (>60); POTASSIUM 4.5 mmol/L (3.5-5.1)
[2016-10-12 06:19] LABS: HEMATOCRIT 28.5 % (35.0-45.0); HEMOGLOBIN 9.7 gm/dL (12.0-16.0); MEAN CELL VOLUME 98.2 FL (83-96); MEAN CORPUSCULAR HEMOGLOBIN 33.5 PG (28-34); MEAN CORPUSCULAR HGB CONC 34.1 g/dL (30-36); MEAN PLATELET VOLUME 9.1 FL (6.5-11.5); RED BLOOD COUNT 2.9 X10e (3.90-5.30); RED CELL DISTRIBUTION WIDTH 13.8 % (11.0-15.5); WHITE BLOOD COUNT 10.5 X10e3 (4.0-10.5)
[2016-10-12 09:44] LABS: ALBUMIN SERUM 3.1 g/dL (3.5-5.0); BILIRUBIN,TOTAL 0.7 mg/dL (0.2-2.0); CALCIUM SERUM 8.6 mg/dL (8.4-10.2); GLOM FILT RATE Estimated 55.5 mL/min (>60); POTASSIUM 4.4 mmol/L (3.5-5.1); PROTEIN TOTAL SERUM 6.4 g/dL (6.0-8.3)
[2016-10-13 06:26] LABS: HEMATOCRIT 30.4 % (35.0-45.0); HEMOGLOBIN 10.2 gm/dL (12.0-16.0); MEAN CELL VOLUME 98.5 FL (83-96); MEAN CORPUSCULAR HGB CONC 33.5 g/dL (30-36); MEAN PLATELET VOLUME 7.6 FL (6.5-11.5); RED BLOOD COUNT 3.09 X10e (3.90-5.30); RED CELL DISTRIBUTION WIDTH 13.2 % (11.0-15.5); WHITE BLOOD COUNT 9.6 X10e3 (4.0-10.5)
[2016-10-13 07:14] LABS: CALCIUM SERUM 8.3 mg/dL (8.4-10.2); GLOM FILT RATE Estimated 55.5 mL/min (>60); POTASSIUM 4.4 mmol/L (3.5-5.1)
[2016-10-14 05:54] LABS: HEMATOCRIT 33.9 % (35.0-45.0); HEMOGLOBIN 11.3 gm/dL (12.0-16.0); MEAN CELL VOLUME 97.3 FL (83-96); MEAN CORPUSCULAR HEMOGLOBIN 32.5 PG (28-34); MEAN CORPUSCULAR HGB CONC 33.4 g/dL (30-36); MEAN PLATELET VOLUME 7.6 FL (6.5-11.5); RED BLOOD COUNT 3.49 X10e (3.90-5.30); WHITE BLOOD COUNT 8.2 X10e3 (4.0-10.5)
[2016-10-14 06:50] LABS: ALBUMIN SERUM 3.3 g/dL (3.5-5.0); BILIRUBIN,TOTAL 0.7 mg/dL (0.2-2.0); CALCIUM SERUM 9.2 mg/dL (8.4-10.2); GLOM FILT RATE Estimated 55.5 mL/min (>60); POTASSIUM 4.5 mmol/L (3.5-5.1); PROTEIN TOTAL SERUM 6.9 g/dL (6.0-8.3)
[2016-10-15 05:32] LABS: INR 1.1; PROTHROMBIN TIME (PATIENT) 11.3 SECONDS (9.6-11.5)
[2016-10-17 06:48] LABS: INR 1.2; PROTHROMBIN TIME (PATIENT) 12.4 SECONDS (9.6-11.5)
[2016-10-18 06:38] LABS: INR 1.3
[2016-10-18 18:59] LABS: HEMATOCRIT 32.5 % (35.0-45.0); HEMOGLOBIN 10.7 gm/dL (12.0-16.0)
[2016-10-19 06:32] LABS: INR 1.5; PROTHROMBIN TIME (PATIENT) 15.5 SECONDS (9.6-11.5)
[2016-10-21 05:34] LABS: HEMATOCRIT 28.4 % (35.0-45.0); HEMOGLOBIN 9.4 gm/dL (12.0-16.0); MEAN CELL VOLUME 99.2 FL (83-96); MEAN CORPUSCULAR HEMOGLOBIN 32.7 PG (28-34); MEAN PLATELET VOLUME 9.3 FL (6.5-11.5); RED BLOOD COUNT 2.86 X10e (3.90-5.30); RED CELL DISTRIBUTION WIDTH 13.4 % (11.0-15.5); WHITE BLOOD COUNT 7.9 X10e3 (4.0-10.5)
[2016-10-21 09:07] LABS: BUN/CREATININE RATIO 29.09; CALCIUM SERUM 8.2 mg/dL (8.4-10.2); CREATININE SERUM 1.1 mg/dL (0.6-1.4); GLOM FILT RATE Estimated 49.4 mL/min (>60); POTASSIUM 4.2 mmol/L (3.5-5.1)
[2016-10-21 15:41] LABS: INR 1.7; PROTHROMBIN TIME (PATIENT) 18.7 SECONDS (9.6-11.5)
[2016-10-21] MEDS ORDERED: COUMADIN5 MG PO (19:02)
[2016-10-21] MEDS ORDERED: RISPERDAL1 M1 PO (19:02)
[2016-10-21] MEDS ORDERED: SEROQUEL PO (19:03)
== END 2016-10-21 20:00 | disposition home health service (06) | DRG 689 ==
LOC: CED 23:59 → CEDOF 10-11 05:00 → C5C 10-11 13:24
PROVIDERS: Emergency Medicine; Family Medicine; Hospitalist; Internal Medicine
DX: N39.0 Urinary tract infection, site not specified (principal); G92 Toxic encephalopathy; I82.411 Acute embolism and thrombosis of right femoral vein; E11.22 Type 2 diabetes mellitus with diabetic chronic kidney disease; F02.81 Dementia in other diseases classified elsewhere, unspecified severity, with behavioral disturbance; R44.3 Hallucinations, unspecified; F31.5 Bipolar disorder, current episode depressed, severe, with psychotic features; F03.90 Unspecified dementia, unspecified severity, without behavioral disturbance, psychotic disturbance, mood disturbance, and anxiety; I12.9 Hypertensive chronic kidney disease with stage 1 through stage 4 chronic kidney disease, or unspecified chronic kidney disease; E78.5 Hyperlipidemia, unspecified; M62.3 Immobility syndrome (paraplegic); K21.9 Gastro-esophageal reflux disease without esophagitis; E66.01 Morbid (severe) obesity due to excess calories; E53.8 Deficiency of other specified B group vitamins; J44.9 Chronic obstructive pulmonary disease, unspecified; Z90.710 Acquired absence of both cervix and uterus; Z79.84 Long term (current) use of oral hypoglycemic drugs; I44.7 Left bundle-branch block, unspecified; F41.9 Anxiety disorder, unspecified; G30.9 Alzheimer's disease, unspecified; N18.2 Chronic kidney disease, stage 2 (mild)
CPT/HCPCS: 36415; 71010; 80048; 80053; 80076; 81003; 82150; 82550; 82947; 83605; 83690; 83735; 84484; 85014; 85018; 85025; 85027; 85610; 85730; 87040; 87086; 93005; 93970; 94640; 94664; 94760; 96374; 96375; 97163; 97167; 99285; G8978-GO; G8978-GP; G8979-GO; G8979-GP; G8980-GO; G8980-GP; G8987-GO; G8987-GP; G8988-GO; G8988-GP; G8989-GO; G8989-GP; J0515; J1630; J1650; J1815; J1940; J2060; J2185; J2930

== ENCOUNTER 2016-10-26 09:58 | Inpatient (IN) | payer MEDICARE, OTHER ==
--- NOTE | ~2016-10-26 | DS ---
Unit #: [id number] #: [id number] Patient: ANTHONY HOLLIS [id number] [address] [address] [id number] I MR#: [id number] NAME: ANTHONY HOLLIS. ROOM: 468 Age: 76 Sex: F Admission Date: 10/26/2016 : 1940 Discharge Date: 11/04/2016 Attending Physician: Elyssa Urban M.D. Primary Care Physician: Mulugeta Paredes Jr., M.D. DISCHARGE SUMMARY DISCHARGE DIAGNOSES 1. Toxic metabolic encephalopathy. 2. Dementia with behavioral disturbances. 3. Poor social support. 4. Type 2 diabetes. 5. Morbidly obese. 6. Chronic kidney disease. 7. Chronic obstructive pulmonary disease. 8. Patient had an acute deep venous thrombosis in the right femoral vein within the mid and distal thigh. PROCEDURE None. GEOLOGIC TECHNICIAN Dr. Hayes of psychiatry. DIAGNOSTIC STUDIES LABORATORY: The last lab that was drawn here was on October 29. BMP: Glucose 174, BUN 28, creatinine 1.3, sodium 138, potassium 4.8, chloride 107, CO2 of 23, calcium 7.7. CBC with WBC of 6.3, RBC 2.65, hemoglobin 8.7, hematocrit 26.6, MCV 100.6, MCH 32.9, MCHC 32.7, RDW 13.3, platelets 267,000, MVP 7.7. Please note, patient's urine culture had normal urogenital oni present. IMAGING: X-ray of ankle on October 26, 2016: Impression - osteopenia. No evidence of displaced fracture or dislocation. HOSPITAL COURSE The patient is a pleasant 76-year-old female with past medical history of dementia, chronic kidney disease, essential hypertension, type 2 diabetes, hyperlipidemia, obesity, immobility syndrome, GERD, anxiety, bipolar underlying mental illness (likely schizophrenia), B12 deficiency, COPD, and history of hysterectomy who was brought to the emergency department by her sister who stated that she was not able to take care of the patient any longer. The patient was hospitalized at our facility at the end of September. At that time, geripsychiatric had refused accepting the patient, although she was seen by Dr. Hayes for underlying mental illness as well as visual and auditory hallucinations. Under Dr. Hayes's recommendation, the patient, the patient was discharged home. Patient was noted to be in her own stool. She was unable to care for herself. She was also again having auditory and visual hallucinations as well as acute mental status confusion. EMS was called and she was brought to the emergency for further evaluation. The patient was thus initially treated Unit #: [id number] #: [id number] Patient: ANTHONY HOLLIS for UTI, although her urine culture had normal urogenital oni. The patient was seen continuously by Dr. Hayes of psychiatry. She is stable at this time on Haldol as an antipsychotic as well as Risperdal. With the assistance of community planner, [facility]. Her POA, Ms. Kathy Ahuja, has been notified by our community planner. DISCHARGE CONDITION Stable to [facility]. ACTIVITIES None restricted, although she will need assistance with physical and occupational therapy. DIET Patient is to resume a heart healthy diet with consistent carb per [facility] recommendations. Patient will also need Accu-Cheks a.c. and at bedtime. DISCHARGE MEDICATIONS 1. Advair 250/50 one puff inhaled twice daily. 2. Sodium bicarbonate 650 mg orally twice daily. 3. Tylenol 650 mg every four hours as needed for mild to moderate pain. 4. Warfarin 5 mg orally daily. To please check a PT and INR on , November 07. 5. Effexor 75 mg orally daily. 6. Metformin 500 mg orally daily. 7. Haldol 5 mg orally three times daily. 8. Risperdal 1 mg orally three times daily. 9. Propranolol 10 mg orally twice daily. 10. Zocor 10 mg orally daily. 11. Levemir 10 units subcutaneously at bedtime. 12. NovoLog low dose sliding scale prior to meals and at bedtime. 13. Florastor 250 mg orally twice daily. 14. Plavix 75 mg orally daily. 15. Vitamin B12 at 1000 mcg orally daily. Please note that this dictation took 40 minutes to include patient education and to coordinate care. Dictated by... Karen Hogan PA-C for Tan Kuhn/miranda TD: 11/04/2016 13:58 JOB #: [id number] Unit #: [id number] #: [id number] Patient: ANTHONY HOLLIS DISCHARGE SUMMARY Page 1 of 1 X X DISCHARGE SUMMARY
--- NOTE | ~2016-10-26 | CO ---
Unit #: [id number] #: [id number] Patient: ANTHONY HOLLIS [id number] [facility] [address] [facility]. [place], [place] [address] [id number] I MR#: [id number] NAME: ANTHONY HOLLIS. ROOM: 468 Age: 76 Sex: F Admission Date: 10/26/2016 : 1940 Attending Physician: Elyssa Urban M.D. Primary Care Physician: Mulugeta Paredes Jr., M.D. Consultation Date: 10/31/2016 CONSULTATION REPORT REASON FOR CONSULTATION Followup. DISCUSSION Ms. Anthony Hollis is a 76-year-old female seen on October 31, 2016 in room 468, bed 1 at [facility]. Patient was admitted with altered mental status and doing much better, compliant, cooperative, reports that she wants to go home. Patient tolerating medication fairly well. Patient dressed in hospital attire, eating her breakfast, pleasant and cooperative, able to answer questions appropriately. No side effects from medication or any agitation. Patient alert, oriented in place and person. Complete review of systems is unremarkable. MENTAL STATUS EXAMINATION Vital signs: 98.1, 75, 20, 157/66, oxygen saturation 97%. General appearance: Patient moderately obese. Dressed casually in hospital attire. Sitting comfortably in chair. Attention span and concentration fair. Speech: Regular rate, coherent. Oriented in place and person. Mood and affect was labile. Thought process circumstantial. Thought content: The patient denied any thoughts of harming self or others. Recent and remote memory fair. Language intact. Fund of knowledge fair. Insight and judgment fair to slightly impaired. 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 ASSESSMENT AND PLAN 1. Supportive psychotherapy and psychoeducation provided to patient. 2. Educated about benefits and side effects of medications and course and prognosis of illness. 3. Advised to continue with current combination of medication and make further adjustment of medication if needed. Deon is currently working on long-term placement for patient. Dictated by... Tan Phillips/miranda TD: 11/01/2016 09:31 Unit #: [id number] #: [id number] Patient: ANTHONY HOLLIS JOB #: [id number] CONSULTATION REPORT Page 1 of 1 X Solitario Hayes MD CONSULTATION REPORT
--- NOTE | ~2016-10-26 | CO ---
Unit #: [id number] #: [id number] Patient: ANTHONY HOLLIS [id number] [address] [address] [id number] I MR#: [id number] NAME: ANTHONY HOLLIS. ROOM: 479 Age: 76 Sex: F Admission Date: 10/26/2016 : 1940 Attending Physician: Juan Carlos Wilcox M.D. Primary Care Physician: Mulugeta Paredes Jr., M.D. Consultation Date: 10/27/2016 CONSULTATION REPORT REASON FOR CONSULTATION Dementia, agitation, confusion. HISTORY OF PRESENT ILLNESS Ms. Anthony Hollis is a 76-year-old female seen in room 479, bed 1, on October 27, 2016, due to be above reasons. Patient was dressed casually in hospital attire. Patient was sleepy. Patient was unable to give any coherent information. She had received Ativan IV and Haldol IV. Patient was agitated. Patient has a sitter. Patient was recently admitted at [facility] last month. Patient was admitted due to unable to care for self at home, found covered in stool with mental status change. Patient at night was attending to internal stimuli, hallucinating, and agitated. Patient was having auditory and visual hallucinations. PAST PSYCHIATRIC HISTORY History of dementia and history of psychosis. PAST MEDICAL HISTORY 1. Dementia. 2. Chronic kidney disease. 3. Hypertension. 4. Diabetes mellitus type 2. 5. Hyperlipidemia. 6. Obesity. 7. Immobility syndrome. 8. Gastroesophageal reflux disease. 9. Anxiety disorder. 10. History of schizophrenia. 11. B12 deficiency. 12. Chronic obstructive pulmonary disease. HOME MEDICATIONS 1. Glucophage. 2. Norvasc. 3. Zocor. 4. Plavix. 5. Effexor. 6. B12. 7. Seroquel. 8. Florastor. 9. Proventil. 10. Advair. 11. Sodium bicarbonate. 12. Tylenol. Unit #: [id number] #: [id number] Patient: ANTHONY HOLLIS 13. Novolin. 14. Risperdal. 15. Coumadin. ALLERGIES Aspirin. FAMILY HISTORY/SOCIAL HISTORY Patient resides by herself. No history of substance and no history of abuse. REVIEW OF SYSTEMS A complete review of systems is remarkable for confusion and agitation. VITAL SIGNS Temperature 98.2, pulse 87, pulse 20, blood pressure 119/104, and oxygen saturation 98%. MENTAL STATUS EXAMINATION GENERAL APPEARANCE: Patient is dressed casually and lying comfortably in bed. Attention span and concentration, poor. Speech, unable to understand. Orientation, unable to assess. Mood and affect, labile. Thought process, disorganized. Thought content, guarded and paranoid. Recent and remote memory, poor. Language, unable to assess. Fund of knowledge, impaired. Insight and judgment, impaired. DIAGNOSES PSYCHIATRIC: 1. Delirium F05. 2. Major neurocognitive disorder secondary to Alzheimer disease with behavioral disturbances, F02.81. SECONDARY DIAGNOSES: Deferred. MEDICAL DIAGNOSES: Please refer to H and P. STRESSORS: Psychosocial stressors. ASSESSMENT AND PLAN 1. Advise to continue with sitter and one-to-one monitoring for patient's safety. 2. Advise to continue with current medications with plan to start patient on Haldol 5 mg three times daily orally or intramuscularly. Patient has a history of bipolar mood disorder. Patient to continue with Risperdal 1 mg three times daily. We will closely follow. If needed, consider further adjustment of medication. Advise to hold Risperdal and haloperidol if patient is too sleepy. 1. Dictated by... Tan Phillips/hiral TD: 10/27/2016 14:48 JOB #: [id number] Unit #: [id number] #: [id number] Patient: ANTHONY HOLLIS CONSULTATION REPORT Page 1 of 1 X Solitario Hayes MD CONSULTATION REPORT
--- NOTE | ~2016-10-26 | CO ---
Unit #: [id number] #: [id number] Patient: ANTHONY HOLLIS [id number] [facility] [address] [facility]. [place], [place] [address] [id number] I MR#: [id number] NAME: ANTHONY HOLLIS. ROOM: 468 Age: 76 Sex: F Admission Date: 10/26/2016 : 1940 Attending Physician: Elyssa Urban M.D. Primary Care Physician: Mulugeta Paredes Jr., M.D. Consultation Date: 10/30/2016 CONSULTATION REPORT REASON FOR CONSULTATION Followup DISCUSSION Ms. Anthony Hollis is a 76-year-old white female seen in room 468, bed 1 on 10/30/2016 at [facility]. Patient dressed in hospital attire, sitting comfortably in chair eating her breakfast. Able to answer questions appropriately. Patient reported that she would like to go home. Patient's recent bilingual social worker is currently looking for placement. Patient tolerating medication fairly well. No side effects of medication. Vital signs was 98.4, 70, 16, 152/72. Patient still somewhat confused, guarded but no agitation. Compliant with medication. Speech is clear, cooperative, alert, oriented to time, place and person. REVIEW OF SYSTEMS Complete review of system is unremarkable except as mentioned above. MENTAL STATUS EXAMINATION VITAL SIGNS: Please see above. GENERAL APPEARANCE: Patient dressed causally in hospital attire. ATTENTION SPAN AND CONCENTRATION: Fair. SPEECH: Regular rate. COHERENT: Oriented in time, place, and person. MOOD AND AFFECT: Labile. THOUGHT PROCESS: Circumstantial. THOUGHT CONTENT: Guarded, paranoid but denied any thought of harming self or others. RECENT AND REMOTE MEMORY: Fair to slightly impaired. LANGUAGE: Fair. FUND OF KNOWLEDGE: Fair. INSIGHT AND JUDGMENT: Fair to slightly impaired. DIAGNOSTIC STUDIES Psychiatric: Major cognitive disorder secondary to Alzheimer disease without behavior disturbances, F02.80. ASSESSMENT/PLAN 1. Supportive psychotherapy and psychoeducation provided to patient. 2. Educated about benefits and side effects of medication and course and prognosis of illness. 3. If needed, consider further additional medication. We will continue to follow. Please feel free to call if any questions, telephone number, . Unit #: [id number] #: [id number] Patient: ANTHONY HOLLIS Dictated by... Tan Phillips/kevin TD: 10/31/2016 07:33 JOB #: [id number] CONSULTATION REPORT Page 1 of 1 X Solitario Hayes MD CONSULTATION REPORT
--- NOTE | ~2016-10-26 | EKG ---
PATIENT: ANTHONY HOLLIS UNIT #: [id number] Ventricular Rate: 106 BPM Atrial Rate: 106 BPM P-R Interval: 166 ms QRS Duration: 140 ms Q-T Interval: 392 ms QTC Calculation(Bezet): 520 ms P [place]: 68 degrees Calculated R [place]: -3 degrees Calculated T [place]: 111 degrees Diagnosis Line: Sinus tachycardia Baseline wander Diagnosis Line: Left bundle branch block with repolarization Diagnosis Line: abnormality Diagnosis Line: Abnormal ECG Diagnosis Line: When compared with ECG of 11-OCT-2016 00:27, Diagnosis Line: Fusion complexes are now Present Diagnosis Line: Premature ventricular complexes are now Present Diagnosis Line: Vent. rate has increased BY 37 BPM Diagnosis Line: Confirmed by KENAN LOO MD ([id number]) on 10/27/2016 Diagnosis Line: 4:06:40 PM INTERPRETING MD: CINDA URRUTIA
--- NOTE | ~2016-10-26 | CO ---
Unit #: [id number] #: [id number] Patient: ANTHONY HOLLIS [id number] [address] [place] [facility]. [place], [place] [address] [id number] I MR#: [id number] NAME: ANTHONY HOLLIS. ROOM: 468 Age: 76 Sex: F Admission Date: 10/26/2016 : 1940 Attending Physician: Elyssa Urban M.D. Primary Care Physician: Mulugeta Paredes Jr., M.D. Consultation Date: 10/28/2016 CONSULTATION REPORT REASON FOR CONSULTATION Followup. DISCUSSION Ms. Anthony Hollis is a 76-year-old female, seen in room 468, bed 1 on 10/28/[address] [facility]. The patient was pleasant and cooperative, sitting comfortably in chair, able to make good eye contact, able to answer questions appropriately, still somewhat disorganized behavior. The patient reports feeling better. The patient made good eye contact, compliant with medication, no side effects from medication. The patient's vital signs; temperature 98.2, pulse 68, respiratory rate 24, blood pressure 135/54, oxygen saturation 100%. sprinkler worker is currently working on discharge planning. The patient has a history of dementia. Denied any current suicidal or homicidal ideation, but somewhat guarded, paranoid. REVIEW OF SYSTEMS Complete review of systems unremarkable. MENTAL STATUS EXAMINATION General appearance, the patient moderately obese, dressed casually, sitting comfortably in chair. Vital signs stable. Attention span and concentration, fair to poor. Speech, somewhat rapid. Oriented in self and place. Mood and affect, labile. Thought process, circumstantial. Thought content, guarded, but denied any thoughts of harming self or others. Recent and remote memory, fair to poor. Language, fair. Fund of knowledge, fair. Insight and judgment, fair to slightly impaired. 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 ASSESSMENT/PLAN 1. Supportive psychotherapy and psychoeducation provided to the patient. 2. Educated about benefits and side effects of medication and course and prognosis of illness. 3. Advised to continue with current medication. If needed, consider further adjustment of medication. Please feel free to call if any questions, telephone #[phone]. Dictated by... Solitario Hayes M.D. Unit #: [id number] #: [id number] Patient: ANTHONY HOLLIS MADELINE/maximilian TD: 10/29/2016 02:49 JOB #: [id number] CONSULTATION REPORT Page 1 of 1 X Solitario Hayes MD X CONSULTATION REPORT
--- NOTE | ~2016-10-26 | CO ---
Unit #: [id number] #: [id number] Patient: ANTHONY HOLLIS [id number] [facility] [address] [facility]. [place], [place] [address] [id number] I MR#: [id number] NAME: ANTHONY HOLLIS. ROOM: 468 Age: 76 Sex: F Admission Date: 10/26/2016 : 1940 Attending Physician: Elyssa Urban M.D. Primary Care Physician: Mulugeta Paredes Jr., M.D. Consultation Date: 10/29/2016 CONSULTATION REPORT REASON FOR CONSULTATION Followup. DISCUSSION Ms. Anthony Hollis is a 76-year-old white female seen in room 468 bed-1 on 10/29/16 at [facility]. Patient was compliant, cooperative, redirectable. Mood was labile, somewhat confused, guarded but denied any thoughts of harming self or others. Denied any psychotic symptoms. Patient reports compliant with medication, making progress. Vital signs - 98.4, 70, 16, 150/70. Oxygen saturation 97%. REVIEW OF SYSTEMS Complete review of systems unremarkable. MENTAL STATUS EXAMINATION VITAL SIGNS: Please see above. GENERAL APPEARANCE: The patient was moderately obese, dressed casually in hospital attire. Attention span and concentration fair. Speech - regular rate, coherent. Oriented in place and person. Mood and affect labile. Thought process circumstantial. Thought content - guarded but denied any thoughts of harming self or others. Recent and remote memory fair. Language - fair. Fund of knowledge fair to slightly impaired. DIAGNOSIS Major neurocognitive disorder secondary to Alzheimer disease with behavioral disturbances - F02.81 ASSESSMENT/PLAN 1. Supportive psychotherapy and psychoeducation provided to patient. 2. Educated about benefits and side effects of medication and course and prognosis of illness. 3. Discussed with the social sciences chair about discharge plan currently looking for a place like [facility] and other placement. Please feel free to call if any questions. Telephone number [phone]. Dictated by... Solitario Hayes M.D. MADELINE/promise Unit #: [id number] #: [id number] Patient: ANTHONY HOLLIS TD: 10/31/2016 08:13 JOB #: [id number] CONSULTATION REPORT Page 1 of 1 X Solitario Hayes MD CONSULTATION REPORT
--- NOTE | ~2016-10-26 | CO ---
Unit #: [id number] #: [id number] Patient: ANTHONY HOLLIS [id number] [address] [place], [place] [address] [id number] I MR#: [id number] NAME: ANTHONY HOLLIS. ROOM: 468 Age: 76 Sex: F Admission Date: 10/26/2016 : 1940 Attending Physician: Elyssa Urban M.D. Primary Care Physician: Mulugeta Paredes Jr., M.D. Consultation Date: 11/01/2016 CONSULTATION REPORT REASON FOR CONSULTATION Followup. DISCUSSION Ms. Anthony Hollis is a 76-year-old white female, seen in room 468, bed 1 on 11/01/2016. The patient was tearful, sad, mad, angry, upset, somewhat agitated this morning as she reported that she does not want to go to senior living. The patient reports that she would like to go home. The patient reported that her daughter informed yesterday. The patient is tolerating medication fairly well. No agitation, but still guarded, paranoid, poor memory. The patient's vital signs; temperature 98.6, pulse 85, respirations 19, blood pressure 165/75, oxygen saturation 95%. MENTAL STATUS EXAMINATION General appearance; the patient dressed casually, moderately obese, lying comfortably in bed, but somewhat anxious, nervous, and mildly agitated. Attention span and concentration, fair. Speech; rambling, rapid. Oriented in self and place. Mood and affect, labile. Thought process, circumstantial. Thought content; guarded, paranoid, but denied any auditory or visual hallucination, or any suicidal or homicidal ideation. Recent and remote memory, fair to slightly impaired. Language, fair. Fund of knowledge, fair to slightly impaired. Insight and judgment, fair to slightly impaired. DIAGNOSES Psychiatric: Major neurocognitive disorder secondary to Alzheimer disease with behavioral disturbances, F02.81; mood disorder, not otherwise specified, F32.9. ASSESSMENT AND PLAN 1. Supportive psychotherapy and psychoeducation provided to the patient. 2. Educated about benefits and side effects of medication and course and prognosis of illness. 3. Advised to continue with current medication. If needed, consider further adjustment of medication. Please feel free to call if any questions, telephone #[phone]. Dictated by... Tan Phillips/maximilian TD: 11/02/2016 22:46 Unit #: [id number] #: [id number] Patient: ANTHONY HOLLIS JOB #: [id number] CONSULTATION REPORT Page 1 of 1 X Solitario Hayes MD X CONSULTATION REPORT
--- NOTE | ~2016-10-26 | CO ---
Unit #: [id number] #: [id number] Patient: ANTHONY HOLLIS [id number] [facility] [address] [facility]. [place], [place] [address] [id number] I MR#: [id number] NAME: ANTHONY HOLLIS. ROOM: 468 Age: 76 Sex: F Admission Date: 10/26/2016 : 1940 Attending Physician: Elyssa Urban M.D. Primary Care Physician: Mulugeta Paredes Jr., M.D. Consultation Date: 11/04/2016 CONSULTATION REPORT HISTORY OF PRESENT ILLNESS Miss Holden is a 76-year-old female seen on 11/04/16. Patient interviewed, chart reviewed and obtained information from nursing staff. Patient seen in room 461 bed 1 on 11/04/[address] [facility]. Patient still somewhat confused, guarded, paranoid, but denied any thoughts of harming self or others. Patient denied any hallucination but still guarded, paranoid, confusion, poor memory. Vital signs 97.4, 70, 16 and 142/62, oxygen saturation 99%. Patient denied any thought of harming self or others. Patient reported that she would like to go home. community health outreach worker is currently working on appropriate placement for patient to [facility]. Patient will be discharged to [facility]. REVIEW OF SYSTEMS On discharge complete review of systems unremarkable. MENTAL STATUS EXAMINATION VITAL SIGNS: Please see above. GENERAL APPEARANCE: Patient moderate obese, dressed casually. ATTENTION SPAN AND CONCENTRATION: Fair. SPEECH: A regular rate but circumstantial. ORIENTATION: Oriented in self and place. MOOD AND AFFECT: Labile. THOUGHT PROCESS: Circumstantial. THOUGHT CONTENT: Guarded, paranoid. MEMORY: Recent and remote memory poor. LANGUAGE: Fair. FUND OF KNOWLEDGE: Fair. INSIGHT AND JUDGMENT: Fair to slightly impaired. DIAGNOSES PSYCHIATRIC: 1. Major neurocognitive disorder secondary to Alzheimer disease with behavioral disturbances, F02.81. 2. Mood disorder, not otherwise specified, F32.9. ASSESSMENT/PLAN 1. Supportive psychotherapy and psychoeducation provided to patient. 2. Educated about benefits and side effects of medication and course and prognosis of illness. 3. Advised to continue with current medication and, if needed, to consider further adjustment of medication. Please feel free to call if any question, telephone number [phone]. Unit #: [id number] #: [id number] Patient: ANTHONY HOLLIS Dictated by..Tan Price/alexia TD: 11/05/2016 22:33 JOB #: [id number] CONSULTATION REPORT Page 1 of 1 X Solitario Hayes MD X CONSULTATION REPORT
--- NOTE | ~2016-10-26 | HP ---
Unit #: [id number] #: [id number] Patient: ANTHONY HOLLIS [id number] [place], [place] [address] [id number] I MR#: [id number] NAME: ANTHONY HOLLIS. ROOM: 16303 Age: 76 Sex: F Admission Date: 10/26/2016 : 1940 Attending Physician: Elyssa Urban M.D. Primary Care Physician: Mulugeta Paredes Jr., M.D. HISTORY AND PHYSICAL REASON FOR ADMISSION Unable to care for self at home; patient found covered in stool, mental status change. HISTORY OF PRESENT ILLNESS Patient recently was admitted to our hospital from what I can gather the late part of September 2016. At that point geropsychiatry refused to actually accept this patient. Patient had been seen at that time by Dr. Hayes for underlying mental illness as well as visual and auditory hallucinations. Dr. Hayes at that time recommended patient to be discharged home. Apparently discussion was made with the family at that time. Family members apparently arrived at the patient's house. They noted that she was covered in stool. She was unable to care for herself. She also began having auditory and visual hallucinations and secondary to acute confusion/mental status changes EMS was called and patient was brought to the hospital for further evaluation. PAST MEDICAL HISTORY Dementia, chronic kidney disease, hypertension, diabetes type 2, hyperlipidemia, obesity, immobility syndrome, GERD, anxiety, bipolar, underlying mental illness likely schizophrenia, B12 deficiency, COPD, hysterectomy. HOME MEDICATIONS Glucophage, Norvasc, Zocor, Plavix, Effexor, B12, Seroquel, Florastor, Proventil, Advair, sodium bicarbonate, Tylenol, Novolin, Risperdal, Coumadin. These are to be verified by pharmacy. ALLERGIES Aspirin. SOCIAL HISTORY Patient currently resides at home by herself. She denies any alcohol or tobacco use. REVIEW OF SYSTEMS Limited secondary to acute confusional state. PHYSICAL EXAMINATION VITAL SIGNS: Pulse 106, respiratory rate 18, blood pressure 120/57. GENERAL APPEARANCE: Morbidly obese, confused 76-year-old female in no Unit #: [id number] #: [id number] Patient: ANTHONY HOLLIS apparent distress. HEAD EXAM: Normocephalic and atraumatic. EAR EXAM: Tympanic membranes do not reveal any erythema or injection. NECK EXAM: Supple. CVS: S1, S2, without murmur. RESPIRATORY: Clear. GI/ABDOMEN: Nontender, nondistended. LOWER EXTREMITIES: Have no evidence of any lower extremity edema or calf tenderness. NEUROLOGICAL EXAM: Patient is alert and oriented x0. DIAGNOSTIC STUDIES LABORATORY: Initial laboratory studies show a potassium of 5.2, creatinine 1.4. Urinalysis was performed, mildly positive. Prior history of ESBL noted. CBC shows a hemoglobin 9.2. INITIAL ADMISSION DIAGNOSES 1. Acute confusional state. 2. Poor social status. 3. Hyperkalemia. 4. Urinary tract infection. 5. Opsgz-in-iifmxos dementia with associated behavioral changes. 6. Toxic-metabolic encephalopathy. 7. Prior history of underlying mental illness. 8. Diabetes. 9. Morbid obesity. 10. Chronic kidney disease. 11. Chronic obstructive pulmonary disease. PLAN Admission to med/surg floor. Routine laboratory studies. Dr. Hayes consultation. Social work consultation. PT/OT evaluation. Rocephin for now for abnormal urinalysis. Overall patient does require placement and I believe rehab transition to long-term care would be moist appropriate for this patient as her home situation is not safe for her to be appropriately discharged. Plans were reviewed with patient. At this point in time she has limited understanding of her overall condition and no family members are present at bedside. Dictated by Tan Kuhn/alexia TD: 10/26/2016 20:18 JOB #: [id number] Unit #: [id number] #: [id number] Patient: ANTHONY HOLLIS HISTORY AND PHYSICAL Page 1 of 1 X Elyssa Urban MD HISTORY AND PHYSICAL
--- NOTE | ~2016-10-26 | CO ---
Unit #: [id number] #: [id number] Patient: ANTHONY HOLLIS [id number] [address] [place], [place] [address] [id number] MR#: [id number] NAME: ANTHONY HOLLIS ROOM: 468 Age: 76 Sex: F Admission Date: 10/26/2016 : 1940 Attending Physician: Elyssa Urban M.D. Primary Care Physician: Mulugeta Paredes Jr., M.D. Consultation Date: 11/02/2016 CONSULTATION REPORT REASON FOR CONSULTATION Followup. DISCUSSION Ms. Anthony Hollis is a 76-year-old white female, seen in room 468 bed 1 on 11/02/2016. The patient seems somewhat anxious, nervous, receiving oxygen through nasal cannula, lying comfortably in bed. Mood was labile, confused, guarded, and paranoid, but denied any thoughts of harming self or others. Denied any other complaints. Vital signs; temperature 98.8, pulse 78, respirations 18, blood pressure 150/61, oxygen saturation 97%. MENTAL STATUS EXAMINATION General appearance; the patient dressed casually in hospital attire, moderately obese. Attention span and concentration, fair. Speech, regular rate, somewhat circumstantial. Oriented in self and place. Mood and affect, labile. Thought process, circumstantial. Thought content, guarded and paranoid. Recent and remote memory, poor. Language, fair. Fund of knowledge, fair to slightly impaired. Insight and judgment, fair to slightly impaired. DIAGNOSES Psychiatric: Major neurocognitive disorder secondary to Alzheimer disease with behavioral disturbances, F02.81; anxiety disorder, not otherwise specified, F40.01. ASSESSMENT AND PLAN 1. Supportive psychotherapy and psychoeducation provided to the patient. The patient was reassured. 2. Educated about benefits and side effects of medication and course and prognosis of illness. 3. Advised to continue with current medication. If needed, consider further adjustment of medication. Please feel free to call if any questions telephone #[phone]. Dictated by... Solitario Hayes M.D. MADELINE/maximilian TD: 11/03/2016 01:05 JOB #: [id number] Unit #: [id number] #: [id number] Patient: HOLLISANTHONY CONSULTATION REPORT Page 1 of 1 X Solitario Hayes MD CONSULTATION REPORT
--- NOTE | ~2016-10-26 | CR21 ---
[facility] A Service of [facility] & [facility] RADIOLOGY TEXT RESULTS PATIENT: ANTHONY HOLLIS LOCATION: [place] [address] : [birth year] UNIT #: [id number] AGE: [address]: Juan Carlos Wilcox MD SEX: F ORDER DR: [id number] [facility] [address] [facility] [place], [place] [address] [id number] MR#: [id number] Acc #: [id number] NAME: ANTHNOY HOLLIS. : 1940 SEX: F STUDY DATE/TIME: 10/26/2016 11:23 UNIT: NEIDA ROOM: STUDY DESCRIPTION: CR Ankle Min 3 Views Rt Attending Physician: Silverio Osei M.D. Ordering Physician: Ed Saji Plunkett M.D. Primary Care Physician: Mulugeta Paredes Jr., M.D. MEDICAL IMAGING REPORT This report is preliminary unless electronic signature is present EXAM Right ankle 10/26/2016. HISTORY 76-year-old female with right ankle pain status post fall today. COMPARISON None. FINDINGS 3 views of the right ankle demonstrate no evidence of a displaced fracture or dislocation. Ankle mortise symmetric. Talar dome intact. Plantar calcaneal spur. Ossification at the Achilles tendon insertion. Mild generalized bony demineralization. IMPRESSION Osteopenia. No evidence of a displaced fracture or dislocation. Dictated by... Barak Yan M.D. THIS IS AN ELECTRONICALLY VERIFIED REPORT Barak Yan M.D. at 10/27/2016 8:11 AM Jose TD: 10/26/2016 16:03 JOB #: [id number] MEDICAL IMAGING REPORT Page 1 of 1 COPY
[~2016-10-26 09:58] MED LIST changes: +ACETAMINOPHEN PO; +ADVAIR 250-501 EACH INH; +AMLODIPINE BESYL5 MG PO; +ATIVAN PO; +CLOPIDOGREL75 MG PO; +COUMADIN5 MG PO; +EFFEXOR75 M3 PO; +FLORASTORKIDS250 MG PO; +GLUCOPHAGE500 MG PO; +NOVOLIN 70100 UNITS/ SUBQ; +RISPERDAL1 M1 PO; +SEROQUEL PO; +SEROQUEL100 MG PO; +SEROQUEL25 MG PO; +ZOCOR-BORROW, D10 MG PO
[2016-10-26 11:55] LABS: URINE SOURCE CLEAN CATCH
[2016-10-26 11:59] LABS: URINE APPEARANCE CLOUDY; URINE BILIRUBIN NEG (NEG); URINE BLOOD NEG (NEG); URINE COLOR YELLOW; URINE GLUCOSE NEG (NEG); URINE KETONE NEG (NEG); URINE LEUKOCYTE ESTERASE 3+ (NEG); URINE NITRATE NEG (NEG); URINE PROTEIN NEG (NEG); URINE SPECIFIC GRAVITY 1.011 (1.003-1.035); URINE UROBILINOGEN 0.2 MG/DL (NEG)
[2016-10-26 12:01] LABS: BASOPHIL% 0.5 % (0-2.5); DIFF IND NO; EOSINOPHIL# 0.2 X10e3 (0-0.7); EOSINOPHIL% 2.3 % (0.0-7.0); HEMATOCRIT 28.2 % (35.0-45.0); HEMOGLOBIN 9.2 gm/dL (12.0-16.0); LYMPHOCYTE# 0.9 X10e3 (1.0-3.5); LYMPHOCYTE% 9.2 % (17.0-45.0); MEAN CELL VOLUME 99.1 FL (83-96); MEAN CORPUSCULAR HEMOGLOBIN 32.3 PG (28-34); MEAN CORPUSCULAR HGB CONC 32.6 g/dL (30-36); MEAN PLATELET VOLUME 7.7 FL (6.5-11.5); MONOCYTE# 0.5 X10e3 (0-1.0); MONOCYTE% 5.3 % (3.0-12.0); NEUTROPHIL# 7.8 X10e3 (1.5-7.1); NEUTROPHIL% 82.7 % (40-75); PLATELET COUNT 278 X10e3 (140-420); RED BLOOD COUNT 2.85 X10e (3.90-5.30); RED CELL DISTRIBUTION WIDTH 13.3 % (11.0-15.5); WHITE BLOOD COUNT 9.4 X10e3 (4.0-10.5)
[2016-10-26 12:03] LABS: CULTURE INDICATED? YES; URBCS1 AUWI 0-2 /[HPF] (0-2); URINE BACTERIA AUWI 3+ (NEGATIVE); URINE SQUAMOUS EPITHELIAL CELL NONE SEEN /[HPF]; UWBCS1 AUWI 200-300 (0-5)
[2016-10-26 12:27] LABS: ALBUMIN SERUM 3.2 g/dL (3.5-5.0); BILIRUBIN, DIRECT 0.1 mg/dL (0.0-0.2); BILIRUBIN,INDIRECT 0.5 mg/dL (0.0-0.9); BILIRUBIN,TOTAL 0.6 mg/dL (0.2-2.0); BUN/CREATININE RATIO 27.14; CALCIUM SERUM 8.6 mg/dL (8.4-10.2); CREATININE SERUM 1.4 mg/dL (0.6-1.4); GLOM FILT RATE Estimated 36.9 mL/min (>60); POTASSIUM 5.2 mmol/L (3.5-5.1)
[2016-10-27 02:42] LABS: BASOPHIL% 0.6 % (0-2.5); EOSINOPHIL# 0.4 X10e3 (0-0.7); EOSINOPHIL% 4.8 % (0.0-7.0); HEMATOCRIT 25.6 % (35.0-45.0); HEMOGLOBIN 8.2 gm/dL (12.0-16.0); LYMPHOCYTE# 1.8 X10e3 (1.0-3.5); LYMPHOCYTE% 23.8 % (17.0-45.0); MEAN CELL VOLUME 99.9 FL (83-96); MEAN CORPUSCULAR HGB CONC 32.1 g/dL (30-36); MEAN PLATELET VOLUME 7.6 FL (6.5-11.5); MONOCYTE# 0.7 X10e3 (0-1.0); MONOCYTE% 9.1 % (3.0-12.0); NEUTROPHIL# 4.7 X10e3 (1.5-7.1); NEUTROPHIL% 61.7 % (40-75); PLATELET COUNT 272 X10e3 (140-420); RED BLOOD COUNT 2.57 X10e (3.90-5.30); RED CELL DISTRIBUTION WIDTH 13.5 % (11.0-15.5); WHITE BLOOD COUNT 7.5 X10e3 (4.0-10.5)
[2016-10-27 02:48] LABS: DIFF IND NO
[2016-10-27 03:08] LABS: BUN/CREATININE RATIO 21.42; CALCIUM SERUM 7.7 mg/dL (8.4-10.2); CREATININE SERUM 1.4 mg/dL (0.6-1.4); GLOM FILT RATE Estimated 36.9 mL/min (>60); POTASSIUM 4.7 mmol/L (3.5-5.1)
[2016-10-27 03:11] LABS: INR 2.5
[2016-10-27 03:30] LABS: PARTIAL THROMBOPLASTIN TIME 36.4 SECONDS (23.5-31.3)
[2016-10-29 03:44] LABS: BASOPHIL% 0.7 % (0-2.5); EOSINOPHIL# 0.4 X10e3 (0-0.7); EOSINOPHIL% 5.7 % (0.0-7.0); HEMATOCRIT 26.6 % (35.0-45.0); HEMOGLOBIN 8.7 gm/dL (12.0-16.0); LYMPHOCYTE# 2.3 X10e3 (1.0-3.5); LYMPHOCYTE% 35.7 % (17.0-45.0); MEAN CELL VOLUME 100.6 FL (83-96); MEAN CORPUSCULAR HEMOGLOBIN 32.9 PG (28-34); MEAN CORPUSCULAR HGB CONC 32.7 g/dL (30-36); MEAN PLATELET VOLUME 7.7 FL (6.5-11.5); MONOCYTE# 0.6 X10e3 (0-1.0); NEUTROPHIL% 47.9 % (40-75); PLATELET COUNT 267 X10e3 (140-420); RED BLOOD COUNT 2.65 X10e (3.90-5.30); RED CELL DISTRIBUTION WIDTH 13.3 % (11.0-15.5); WHITE BLOOD COUNT 6.3 X10e3 (4.0-10.5)
[2016-10-29 03:45] LABS: DIFF IND NO
[2016-10-29 04:04] LABS: BUN/CREATININE RATIO 21.53; CALCIUM SERUM 7.7 mg/dL (8.4-10.2); CREATININE SERUM 1.3 mg/dL (0.6-1.4); GLOM FILT RATE Estimated 40.4 mL/min (>60); POTASSIUM 4.8 mmol/L (3.5-5.1)
== END 2016-11-04 19:26 | DRG 92 ==
LOC: CED 09:58 → CEDOF 15:40 → C4C 15:40 → CEDOF 16:32 → CED 16:32 → C4C 20:51 → CEDOF 20:51 → C4C 10-27 06:15
PROVIDERS: Emergency Medicine; Family Medicine
DX: G92 Toxic encephalopathy (principal); F05 Delirium due to known physiological condition; E11.22 Type 2 diabetes mellitus with diabetic chronic kidney disease; G30.9 Alzheimer's disease, unspecified; E87.5 Hyperkalemia; F02.81 Dementia in other diseases classified elsewhere, unspecified severity, with behavioral disturbance; Z79.84 Long term (current) use of oral hypoglycemic drugs; N18.9 Chronic kidney disease, unspecified; J44.9 Chronic obstructive pulmonary disease, unspecified; E66.01 Morbid (severe) obesity due to excess calories; F39 Unspecified mood [affective] disorder; F41.9 Anxiety disorder, unspecified; M62.3 Immobility syndrome (paraplegic); K21.9 Gastro-esophageal reflux disease without esophagitis; E53.8 Deficiency of other specified B group vitamins; E86.0 Dehydration; Z68.35 Body mass index [BMI] 35.0-35.9, adult
CPT/HCPCS: 36415; 51701; 73610; 80048; 80076; 81003; 82947; 84443; 85025; 85610; 85730; 87086; 93005; 94640; 94760; 97110; 97116; 97163; 97167; 97530; 97535; 99285; G8978-GP; G8979-GP; G8980-GP; G8987-GO; G8988-GO; J0696; J1630; J1650; J1815; J2060; J2405

== ENCOUNTER 2016-12-05 13:04 | Emergency (ER) | payer MEDICARE, OTHER ==
--- NOTE | ~2016-12-05 | CR93 ---
[facility] A Service of [facility] & [facility] RADIOLOGY TEXT RESULTS PATIENT: ANTHONY HOLLIS LOCATION: [facility] : 42 UNIT #: [id number] AGE: [address]: Gil Rosas MD SEX: F ORDER DR: [id number] [facility] [address] [place], [place] [address] [id number] MR#: [id number] Acc #: [id number] NAME: ANTHONY HOLLIS : 1940 SEX: F STUDY DATE/TIME: 12/05/2016 13:50 UNIT: [facility] ROOM: STUDY DESCRIPTION: CR Elbow Min 3 Views Lt Attending Physician: Gil Rosas M.D. Ordering Physician: Gil Rosas M.D. Primary Care Physician: Mulugeta Paredes Jr., M.D. MEDICAL IMAGING REPORT This report is preliminary unless electronic signature is present EXAM Left elbow, 12/05/2016, 1350 hours. CLINICAL HISTORY Patient fell 3 days ago, pain, abnormal prior x-ray. COMPARISON 07/07/2016 FINDINGS AP, lateral, and oblique views demonstrate elbow joint effusion. Patient had a radial head and neck fracture on 07/07/2016 and there is further displacement and disruption of the articular surface of the radius. There is separation of the humerus from the olecranon with debris present suggesting fracture of the distal humerus. Question periosteal reaction along the distal humerus medially which could indicate that these changes are chronic. An acute component is difficult to exclude given this complex appearance. IMPRESSION Markedly abnormal appearance to the elbow. Patient had an acute fracture of the radial head and neck on 07/07/2016 and there is further disruption of the articular surface and displacement of fragments of the radius disrupting the articulation with the humerus. There is separation of the humerus from the olecranon consistent with subluxation or partial dislocation with fragments located in the olecranon fossa. Multiple new fragments are seen around the distal humerus since the films of 07/07/2016. There is suggested periosteal reaction along the medial aspect of the distal humerus which could indicate some healing response and some chronicity to the current findings. The presence of an acute superimposed fracture cannot be excluded. STAT * RESULT [facility] A Service of [facility] & [facility] RADIOLOGY TEXT RESULTS PATIENT: [facility]IS [id number] : [birth year] UNIT #: [id number] AGE: [address]: Gil Rosas MD SEX: F ORDER DR: Dictated by... Makenna Benitez M.D. THIS IS AN ELECTRONICALLY VERIFIED REPORT Makenna Benitez M.D. at 12/05/2016 2:31 PM JACQUELIN/norma TD: 12/05/2016 14:20 JOB #: [id number] MEDICAL IMAGING REPORT Page 1 of 1 COPY
[2016-12-05 13:52] LABS: BASOPHIL% 0.6 % (0-2.5); EOSINOPHIL# 0.1 X10e3 (0-0.7); EOSINOPHIL% 1.9 % (0.0-7.0); HEMATOCRIT 31.5 % (35.0-45.0); HEMOGLOBIN 10.2 gm/dL (12.0-16.0); LYMPHOCYTE# 1.5 X10e3 (1.0-3.5); LYMPHOCYTE% 19.2 % (17.0-45.0); MEAN CELL VOLUME 99.9 FL (83-96); MEAN CORPUSCULAR HEMOGLOBIN 32.5 PG (28-34); MEAN CORPUSCULAR HGB CONC 32.5 g/dL (30-36); MEAN PLATELET VOLUME 7.6 FL (6.5-11.5); MONOCYTE# 0.5 X10e3 (0-1.0); NEUTROPHIL# 5.5 X10e3 (1.5-7.1); NEUTROPHIL% 72.3 % (40-75); PLATELET COUNT 257 X10e3 (140-420); RED BLOOD COUNT 3.15 X10e (3.90-5.30); RED CELL DISTRIBUTION WIDTH 13.7 % (11.0-15.5); WHITE BLOOD COUNT 7.6 X10e3 (4.0-10.5)
[2016-12-05 13:53] LABS: DIFF IND NO
[2016-12-05 14:06] LABS: INR 1.1; PARTIAL THROMBOPLASTIN TIME 24.5 SECONDS (23.5-31.3)
[2016-12-05 14:18] LABS: BUN/CREATININE RATIO 29.23; CALCIUM SERUM 8.8 mg/dL (8.4-10.2); CREATININE SERUM 1.3 mg/dL (0.6-1.4); GLOM FILT RATE Estimated 40.4 mL/min (>60); POTASSIUM 5.4 mmol/L (3.5-5.1)
== END 2016-12-05 18:29 | disposition home or self-care (01) ==
LOC: CED 13:04
PROVIDERS: Emergency Medicine
DX: S52.122D Displaced fracture of head of left radius, subsequent encounter for closed fracture with routine healing (principal); E87.5 Hyperkalemia; E11.65 Type 2 diabetes mellitus with hyperglycemia; J44.9 Chronic obstructive pulmonary disease, unspecified; F32.9 Major depressive disorder, single episode, unspecified; F20.9 Schizophrenia, unspecified; Z86.718 Personal history of other venous thrombosis and embolism; Z90.710 Acquired absence of both cervix and uterus; Z41.9 Encounter for procedure for purposes other than remedying health state, unspecified; Z79.01 Long term (current) use of anticoagulants; W19.XXXD Unspecified fall, subsequent encounter; Y92.9 Unspecified place or not applicable
CPT/HCPCS: 36415; 73080; 80048; 82947; 85025; 85610; 85730; 96361; 96374; 99284